=== PATIENT | female | born 1945 | race Caucasian/White ===

== ENCOUNTER 2017-08-25 09:25 | Emergency (ER) | payer MEDICARE, OTHER ==
--- NOTE | 2017-08-25 10:03 | EDM.PDOC ---
ED HPI GENERAL MEDICAL PROBLEM - General Chief Complaint: General Stated Complaint: UNSTABLE ON FEET Time Seen by Provider: 08/25/17 09:57 Source of Information: Reports: Patient, Family History Limitations: Reports: No Limitations - History of Present Illness INITIAL COMMENTS - FREE TEXT/NARRATIVE: 71 yo female BIB with c/o unsteady on feet and dizziness for at past 3- 4 days. Pt unsure if she is dizzy. When questioned, most answers per patient is "i dont know". Pt is alert and oriented but slow to respond at times. Per , pt had last chemo 2 weeks ago and has been going to the infusion clinic for IV fluids. States that when her potassium and magnesium are low, she began having the previously mentioned symptoms. States that she also has nausea. states that alertness is normal for her. Pt does state that she has some epigastric pain, states that she vomits frequently after eating and today was the first day she was able to eat without vomiting, They are to see a GI doctor next week. Onset: Gradual Duration: Intermittent Location: Reports: Abdomen Quality: Reports: Ache Severity: Mild Improves with: Reports: None Worsens with: Reports: Eating Associated Symptoms: Reports: Weakness - Related Data Allergies Allergy/AdvReac Type Severity Reaction Status Date / Time meperidine HCl [From Demerol] Allergy Anxiety Verified 08/25/17 09:35 Home Meds: Home Meds Aspirin [Ecotrin] 81 mg PO DAILY 05/24/14 [History] Calcium Carbonate [Tums] 2 tab PO ASDIRECTED PRN 05/24/14 [History] Colesevelam [Welchol] 1,875 mg PO BID 05/24/14 [History] Lutein/Minerals/Vit A,C & E [I-Chau] 2 cap PO DAILY 05/24/14 [History] Acetaminophen [Tylenol Extra Strength] 500 mg PO Q6H PRN 10/11/14 [History] Ibuprofen [Motrin] 200 mg PO Q6H PRN 10/11/14 [History] Hypromellose [GenTeal Mild to Moderate Ophth Soln] 1 drop EYEBOTH TID PRN [History] Lidocaine/Prilocaine [EMLA Crm] 1 applic TOP DAILY PRN 06/21/17 [History] Lisinopril [Prinivil] 10 mg PO DAILY 06/21/17 [History] Ondansetron HCl [Zofran] 8 mg PO Q8HR PRN 06/21/17 [History] Potassium Chloride [Klor-Con 10] 20 meq PO TID 06/21/17 [History] Prochlorperazine Maleate [Compazine] 10 mg PO Q6HR PRN 06/21/17 [History] Pyridoxine HCl [Vitamin B-6] 100 mg PO DAILY 06/21/17 [History] Terconazole [Terazol 7] 1 applic TOP DAILY PRN 06/21/17 [History] Calcium Citrate 200 mg PO DAILY 08/16/17 [History] LORazepam 0.5 mg PO BID PRN 08/16/17 [History] Latanoprost [Xalatan 0.005% Ophth Soln] 1 drop EYELF BEDTIME 08/16/17 [History] Loperamide [Imodium] 2 mg PO Q8HR PRN 08/16/17 [History] OLANZapine [ZyPREXA] 5 mg PO BID 08/16/17 [History] Pantoprazole Sodium [Protonix] 40 mg PO QAM 08/16/17 [History] Past Medical History HEENT 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: Cataract, Impaired Vision, Macular Degeneration Other HEENT History: facial fracture Cardiovascular 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: High Cholesterol, Hypertension Other Cardiovascular History: hyperlipidemia+ Respiratory 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: None Gastrointestinal 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: Diverticulosis Genitourinary 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: None [employer] 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: , Other (See Below) Other OB/BYN History: miscarriage Musculoskeletal 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: None Other Musculoskeletal History: fx clavicle Neurological 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: None Psychiatric 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: None Endocrine/Metabolic 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: Obesity/BMI 30+ Hematologic 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: None Immunologic 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: Immunosuppression Oncologic (Cancer) 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: Other (See Below) Other Oncologic History: vulvar Dermatologic 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: None - Infectious Disease History Infectious Disease 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: Chicken Pox, Measles, Mumps - Past Surgical History HEENT Surgical 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: Cataract Surgery Cardiovascular Surgical 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: None Respiratory Surgical 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: None GI Surgical 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: Cholecystectomy Female Surgical 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: Tubal Ligation Endocrine Surgical 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: None Neurological Surgical 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: None Musculoskeletal Surgical 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: Other (See Below) Other Musculoskeletal Surgeries/Procedures:: jaw surgery Oncologic Surgical 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: Other (See Below) Other Oncologic Surgeries/Procedures: 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 Dermatological Surgical 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: None Social & Family History - Family History Family Medical History: Noncontributory - Tobacco Use Smoking Status *Q: Never Smoker Month Tobacco Last Used: 12/15/1978 Second Hand Smoke Exposure: No - Caffeine Use Caffeine Use: Reports: Coffee, Soda, Tea Other Caffeine Use: RARELY - Alcohol Use Days Per Week of Alcohol Use: 0 - Recreational Drug Use Recreational Drug Use: No Drug Use in Last 12 Months: No ED ROS GENERAL - Review of Systems Review Of Systems: See Below Constitutional: Reports: Fatigue, Decreased Appetite GI/Abdominal: Reports: Abdominal Pain Neurological: Reports: Weakness, Gait Disturbance ED EXAM, GENERAL - Physical Exam Exam: See Below Exam Limited By: No Limitations General Appearance: Alert, WD/WN, No Apparent Distress Eye Exam: Bilateral Eye: Normal Inspection, PERRL Ears: Normal External Exam, Normal Canal, Hearing Grossly Normal, Normal TMs Ear Exam: Bilateral Ear: Auricle Normal, Canal Normal, TM normal Nose: Normal Inspection, Normal Mucosa, No Blood Throat/Mouth: Normal Inspection, Normal Lips, Normal Teeth, Normal Gums, Normal Oropharynx, Normal Voice, No Airway Compromise Head: Atraumatic, Normocephalic Neck: Normal Inspection, Supple, Non-Tender, Full Range of Motion Respiratory/Chest: No Respiratory Distress, Lungs Clear, Normal Breath Sounds, No Accessory Muscle Use, Chest Non-Tender Cardiovascular: Normal Peripheral Pulses, Regular Rate, Rhythm, No Edema, No Gallop, No JVD, No Murmur, No Rub Peripheral Pulses: 4+: Radial (L), Radial (R), Dorsalis Pedis (L), Dorsalis Pedis (R) GI/Abdominal: Normal Bowel Sounds, Soft, No Organomegaly, No Distention, No Abnormal Bruit, No Mass, Tender (epigastric) Extremities: Normal Inspection, Normal Range of Motion, Non-Tender, Normal Capillary Refill, No Pedal Edema Neurological: Alert, Oriented, CN II-XII Intact, Normal Reflexes, No Motor/ Sensory Deficits, Slow to Respond, Abnormal Gait (uses cane or walker) Psychiatric: Normal Affect, Normal Mood Skin Exam: Warm, Dry, Intact, Normal Color, No Rash Lymphatic: No Adenopathy Course - Vital Signs Last Recorded V/S: Last Vital Signs Temp 98.5 F 08/25/17 15:55 Pulse 78 08/25/17 15:55 Resp 20 08/25/17 15:55 BP 109/70 08/25/17 15:55 Pulse Ox 97 08/25/17 15:55 - Orders/Labs/Meds Orders: Active Orders 24 hr Category Date Time Status EKG Documentation Completion [RC] STAT Care 08/25/17 10:06 Active Heart Healthy Diet [DIET] Diet 08/25/17 Lunch Active Sodium Chloride 0.9% [Saline Flush] Med 08/25/17 10:06 Active 10 ml FLUSH ASDIRECTED PRN Saline Lock Insert [OM.PC] Stat Oth 08/25/17 10:06 Ordered Medication Orders Sodium Chloride (Saline Flush) 10 ml FLUSH ASDIRECTED PRN PRN Reason: Keep Vein Open Last Admin: 08/25/17 10:16 Dose: 10 ml Labs: Laboratory Tests 08/25/17 08/25/17 08/25/17 Range/Units 10:10 10:10 10:10 WBC 2.7 L (5.0-10.0) 10^3/uL RBC 2.56 L (4.2-5.4) 10^6/uL Hgb 8.6 L D (12.0-16.0) g/dL Hct 27.4 L (37.0-47.0) % MCV 107.0 H D (80-100) fL MCH 33.6 (27.0-34.0) pg MCHC 31.4 L (33.0-35.0) g/dL Plt Count 77 L D (150-450) 10^3/uL Neut % (Auto) 60.0 (42.2-75.2) % Lymph % (Auto) 21.5 (20.5-50.1) % [place] % (Auto) 17.7 H (2-8) % Eos % (Auto) 0.4 L (1.0-3.0) % Baso % (Auto) 0.4 (0.0-1.0) % Sodium 139 (135-145) mmol/L Potassium 2.6 L (3.6-5.0) mmol/L Chloride 103 (101-111) mmol/L Carbon Dioxide 24.0 (21.0-31.0) mmol/L Anion Gap 14.6 BUN 8 (7-18) mg/dL Creatinine 0.7 (0.6-1.3) mg/dL Est Cr Clr Drug Dosing TNP Estimated GFR (MDRD) > 60 BUN/Creatinine Ratio 11.42 Glucose 108 H (74-105) mg/dL Calcium 8.4 (8.4-10.2) mg/dl Phosphorus (2.5-4.6) mg/dL Magnesium (1.8-2.5) mg/dL Total Bilirubin 1.3 H (0.2-1.0) mg/dL AST 27 (10-42) IU/L ALT 34 (10-60) IU/L Alkaline Phosphatase 67 (42-121) IU/L Creatine Kinase 11 L (26-174) IU/L Creatine Kinase Index 21.8 H (0-2.4) % CK-MB (CK-2) 2.40 (0.4-4.7) ng/mL Troponin I 0.05 H* (0.00-0.02) ng/ml Total Protein 5.8 L (6.7-8.2) g/dl Albumin 3.0 L (3.2-5.5) g/dl Globulin 2.8 Albumin/Globulin Ratio 1.07 Urine Color (YELLOW) Urine Appearance (CLEAR) Urine pH (5.0-9.0) Ur Specific [place] (1.005-1.030) Urine Protein (NEGATIVE) Urine Glucose (UA) (NEGATIVE) Urine Ketones (NEGATIVE) Urine Occult Blood (NEGATIVE) Urine Nitrite (NEGATIVE) Urine Bilirubin (NEGATIVE) Urine Urobilinogen (0.2-1.0) mg/dL Ur Leukocyte Esterase (NEGATIVE) Urine RBC /HPF Urine WBC (0-5/HPF) /HPF Ur Epithelial Cells /HPF Urine Bacteria (0-FEW/HPF) /HPF Urine Mucus /LPF 08/25/17 08/25/17 08/25/17 Range/Units 10:10 12:10 14:40 WBC (5.0-10.0) 10^3/uL RBC (4.2-5.4) 10^6/uL Hgb (12.0-16.0) g/dL Hct (37.0-47.0) % MCV (80-100) fL MCH (27.0-34.0) pg MCHC (33.0-35.0) g/dL Plt Count (150-450) 10^3/uL Neut % (Auto) (42.2-75.2) % Lymph % (Auto) (20.5-50.1) % [place] % (Auto) (2-8) % Eos % (Auto) (1.0-3.0) % Baso % (Auto) (0.0-1.0) % Sodium 139 (135-145) mmol/L Potassium 3.5 L (3.6-5.0) mmol/L Chloride 104 (101-111) mmol/L Carbon Dioxide 24.0 (21.0-31.0) mmol/L Anion Gap 14.5 BUN 8 (7-18) mg/dL Creatinine 0.8 (0.6-1.3) mg/dL Est Cr Clr Drug Dosing TNP Estimated GFR (MDRD) > 60 BUN/Creatinine Ratio Glucose 104 (74-105) mg/dL Calcium 8.4 (8.4-10.2) mg/dl Phosphorus 2.9 (2.5-4.6) mg/dL Magnesium 1.0 L (1.8-2.5) mg/dL Total Bilirubin (0.2-1.0) mg/dL AST (10-42) IU/L ALT (10-60) IU/L Alkaline Phosphatase (42-121) IU/L Creatine Kinase (26-174) IU/L Creatine Kinase Index (0-2.4) % CK-MB (CK-2) (0.4-4.7) ng/mL Troponin I 0.05 H* (0.00-0.02) ng/ml Total Protein (6.7-8.2) g/dl Albumin (3.2-5.5) g/dl Globulin Albumin/Globulin Ratio Urine Color [place] (YELLOW) Urine Appearance Slightly cloudy (CLEAR) Urine pH 7.0 (5.0-9.0) Ur Specific [place] 1.020 (1.005-1.030) Urine Protein 30 H (NEGATIVE) Urine Glucose (UA) Negative (NEGATIVE) Urine Ketones Negative (NEGATIVE) Urine Occult Blood Negative (NEGATIVE) Urine Nitrite Negative (NEGATIVE) Urine Bilirubin Small H (NEGATIVE) Urine Urobilinogen >=8.0 H (0.2-1.0) mg/dL Ur Leukocyte Esterase Moderate H (NEGATIVE) Urine RBC 0-5 /HPF Urine WBC >100 H (0-5/HPF) /HPF Ur Epithelial Cells Few /HPF Urine Bacteria Moderate H (0-FEW/HPF) /HPF Urine Mucus Rare /LPF 08/25/17 Range/Units 14:40 WBC (5.0-10.0) 10^3/uL RBC (4.2-5.4) 10^6/uL Hgb (12.0-16.0) g/dL Hct (37.0-47.0) % MCV (80-100) fL MCH (27.0-34.0) pg MCHC (33.0-35.0) g/dL Plt Count (150-450) 10^3/uL Neut % (Auto) (42.2-75.2) % Lymph % (Auto) (20.5-50.1) % [place] % (Auto) (2-8) % Eos % (Auto) (1.0-3.0) % Baso % (Auto) (0.0-1.0) % Sodium (135-145) mmol/L Potassium (3.6-5.0) mmol/L Chloride (101-111) mmol/L Carbon Dioxide (21.0-31.0) mmol/L Anion Gap BUN (7-18) mg/dL Creatinine (0.6-1.3) mg/dL Est Cr Clr Drug Dosing Estimated GFR (MDRD) BUN/Creatinine Ratio Glucose (74-105) mg/dL Calcium (8.4-10.2) mg/dl Phosphorus (2.5-4.6) mg/dL Magnesium 1.6 L (1.8-2.5) mg/dL Total Bilirubin (0.2-1.0) mg/dL AST (10-42) IU/L ALT (10-60) IU/L Alkaline Phosphatase (42-121) IU/L Creatine Kinase (26-174) IU/L Creatine Kinase Index (0-2.4) % CK-MB (CK-2) (0.4-4.7) ng/mL Troponin I (0.00-0.02) ng/ml Total Protein (6.7-8.2) g/dl Albumin (3.2-5.5) g/dl Globulin Albumin/Globulin Ratio Urine Color (YELLOW) Urine Appearance (CLEAR) Urine pH (5.0-9.0) Ur Specific [place] (1.005-1.030) Urine Protein (NEGATIVE) Urine Glucose (UA) (NEGATIVE) Urine Ketones (NEGATIVE) Urine Occult Blood (NEGATIVE) Urine Nitrite (NEGATIVE) Urine Bilirubin (NEGATIVE) Urine Urobilinogen (0.2-1.0) mg/dL Ur Leukocyte Esterase (NEGATIVE) Urine RBC /HPF Urine WBC (0-5/HPF) /HPF Ur Epithelial Cells /HPF Urine Bacteria (0-FEW/HPF) /HPF Urine Mucus /LPF Meds: Medications Generic Name Dose Route Start Last Admin Trade Name Freq PRN Reason Stop Dose Admin Sodium Chloride 10 ml 08/25/17 10:06 08/25/17 10:16 Saline Flush FLUSH 10 ml ASDIRECTED PRN Administration Keep Vein Open Discontinued Medications Generic Name Dose Route Start Last Admin Trade Name Freq PRN Reason Stop Dose Admin Ciprofloxacin 500 mg 08/25/17 16:19 Ciprofloxacin Hcl PO 08/25/17 16:20 ONETIME ONE Potassium Chloride 20 meq/ 100 mls @ 50 mls/hr 08/25/17 11:05 08/25/17 11:20 Premix IV 08/25/17 13:04 50 mls/hr ONETIME ONE Administration Sodium Chloride 500 mls @ 500 mls/hr 08/25/17 11:17 08/25/17 11:18 Normal Saline IV 08/25/17 12:16 500 mls/hr .BOLUS ONE Administration Magnesium Sulfate 2 gm/ Premix 50 mls @ 25 mls/hr 08/25/17 11:18 08/25/17 13: 52 IV 08/25/17 13:17 25 mls/hr ONETIME ONE Administration Nitrofurantoin Macrocrystals 100 mg 08/25/17 16:01 Macrobid PO 08/25/17 16:02 ONETIME ONE - Re-Assessments/Exams Free Text/Narrative Re-Assessment/Exam: 08/25/17 11:42 Informed and patient that cardiac enzymes were elevated and electrolytes were low and need replacement. Will send patient to extended Er for replacement and repeat troponin. Both verbalizes understanding 08/25/17 16:35 Labs improved after lytes replacement. troponin stable. Pt more alert and oriented. UTI treated. Will DC home Departure - Departure Time of Disposition: 16:36 Disposition: Home, Self-Care 01 Condition: Good Clinical Impression: Hypokalemia, Hypomagnesemia, UTI, Urinary tract infectious disease Neutropenia Qualifiers: Neutropenia type: secondary to cancer chemotherapy Qualified Code(s): D70.1 - Agranulocytosis secondary to cancer chemotherapy; T45.1X5A - Adverse effect of antineoplastic and immunosuppressive drugs, initial encounter - Discharge Information Instructions: Hypomagnesemia, Premature Ventricular Contraction, Hypokalemia, Urinary Tract Infection, Adult, Neutropenia Forms: ED Department Discharge Additional Instructions: MAke sure to stay well hydrated. Follow up with your PCP in 3-5 days. Return for any worsening symptoms. - My Orders Last 24 Hours: My Active Orders 08/25/17 10:06 EKG Documentation Completion [RC] STAT Sodium Chloride 0.9% [Saline Flush] 10 ml FLUSH ASDIRECTED PRN Saline Lock Insert [OM.PC] Stat 08/25/17 Lunch Heart Healthy Diet [DIET] - Assessment/Plan Last 24 Hours: My Active Orders 08/25/17 10:06 EKG Documentation Completion [RC] STAT Sodium Chloride 0.9% [Saline Flush] 10 ml FLUSH ASDIRECTED PRN Saline Lock Insert [OM.PC] Stat 08/25/17 Lunch Heart Healthy Diet [DIET]
[2017-08-25] MEDS ORDERED: Sodium Chloride 0.9% 10 ML Syringe FLUSH PRN (10:06)
[2017-08-25 10:42] LABS: CHLORIDE,CL 103 mmol/L (101-111); SODIUM,NA 139 mmol/L (135-145)
--- NOTE | 2017-08-25 10:57 | CR ---
Clinical history: 71-year-old female experiencing "dizziness". Interpretation: Right supraclavicular central venous chemoinfusion line. Normal cardiac silhouette without alveolar edema or dependent effusion (subtle blunting of the left costophrenic sulcus as noted on 11 October 2014 exam). No new lung mass, hilar lymphadenopathy or focal lobar pneumonia. No atelectasis/collapse or signs of heart failure. CONCLUSION: No acute cardiopulmonary abnormality.
[2017-08-25] MEDS ORDERED: Potassium Chloride 20 MEQ in Premix Bag 1 BAG IV ONE (11:05)
[2017-08-25] MEDS ORDERED: Sodium Chloride 0.9% 500 ML IV ONE (11:17)
[2017-08-25] MEDS ORDERED: Magnesium Sulfate/Water 2 GM in Premix Bag 1 BAG IV ONE (11:18)
[2017-08-25 15:10] LABS: CHLORIDE,CL 104 mmol/L (101-111); SODIUM,NA 139 mmol/L (135-145)
[2017-08-25 15:55] VITALS: BP 109/70
[2017-08-25] MEDS ORDERED: Nitrofurantoin Monohydrate/Macrocrystalline 100 MG Cap PO ONE (16:01)
[2017-08-25] MEDS ORDERED: Ciprofloxacin 500 MG Tab PO ONE (16:19)
--- NOTE | 2017-08-29 11:09 | EKG ---
08/25/2017 - MIRLANDE ROBLEDO - This 12-lead EKG showed a normal sinus rhythm with a ventricular rate of 97. There were multiple PVCs. No acute ST-T wave changes. Nonspecific T-wave changes seen in multiple leads. [facility] /[id number]
== END 2017-08-25 17:13 | disposition home or self-care (01) ==
LOC: DL.ED 09:25
DX: N39.0 Urinary tract infection, site not specified (principal); D70.1 Agranulocytosis secondary to cancer chemotherapy; E87.6 Hypokalemia; E83.42 Hypomagnesemia; I10 Essential (primary) hypertension; E66.9 Obesity, unspecified; Z88.8 Allergy status to other drugs, medicaments and biological substances; Z79.82 Long term (current) use of aspirin; Z79.899 Other long term (current) drug therapy
CPT/HCPCS: 36415; 71010; 80048; 80053; 81001; 82550; 82553; 83735; 84100; 84484; 85025; 93005; 93010; 96365; 96366; 96367; 99284; A9270; J3480; J7030; J7050; J3475

== ENCOUNTER 2017-09-01 12:25 | Observation (INO) | payer MEDICARE, OTHER ==
--- NOTE | 2017-09-01 15:16 | EDM.PDOC ---
ED HPI GENERAL MEDICAL PROBLEM - General Chief Complaint: General Stated Complaint: UNSTEADY,WEAK Time Seen by Provider: 09/01/17 14:15 Source of Information: Reports: Patient, Family, Old Records, RN, RN Notes Reviewed History Limitations: Reports: Altered Mental Status - History of Present Illness INITIAL COMMENTS - FREE TEXT/NARRATIVE: Patient was brought to the ER by her . states she was to be seen at [facility] for magnesium and potassium infusions. He was contacted by [facility] and told that she was too unstable according to her labs to be brought to the infusion center, and that she should be evaluated in the ER. states she has been increasingly confused and weak. He states she does have lung cancer, but last Chest CT showed the cancer had diminished. She was having a difficult time with the chemo, so this was stopped 2 weeks ago. He states she was seen on 08/25 in the ER and was diagnosed with a UTI and was given Cipro. He attributed the increased confusion and weakness to the UTI. She did see her PCP last week and told her that the patient did not appear to be any better. The medication was changed to Augmentin. Today, the patient's was contacted and told that the urine culture did not grow anything. SHe last had her Augmentin this morning, but he states it makes her very nauseated. He also states they have been doctoring with ENT and GI for a gagging issue in which she is not tolerating food, gags, and vomits quite frequently. Onset: Gradual - Related Data Allergies Allergy/AdvReac Type Severity Reaction Status Date / Time meperidine HCl [From Demerol] Allergy Anxiety Verified 09/01/17 18:22 Home Meds: Home Meds Aspirin [Ecotrin] 81 mg PO DAILY 05/24/14 [History] Calcium Carbonate [Tums] 2 tab PO ASDIRECTED PRN 05/24/14 [History] Colesevelam [Welchol] 1,875 mg PO BID 05/24/14 [History] Lutein/Minerals/Vit A,C & E [I-Chau] 2 cap PO DAILY 05/24/14 [History] Acetaminophen [Tylenol Extra Strength] 500 mg PO Q6H PRN 10/11/14 [History] Ibuprofen [Motrin] 200 mg PO Q6H PRN 10/11/14 [History] Hypromellose [GenTeal Mild to Moderate Ophth Soln] 1 drop EYEBOTH TID PRN [History] Lidocaine/Prilocaine [EMLA Crm] 1 applic TOP DAILY PRN 06/21/17 [History] Ondansetron HCl [Zofran] 8 mg PO Q8HR PRN 06/21/17 [History] Potassium Chloride [Klor-Con 10] 20 meq PO TID 06/21/17 [History] Prochlorperazine Maleate [Compazine] 10 mg PO Q6HR PRN 06/21/17 [History] Pyridoxine HCl [Vitamin B-6] 100 mg PO DAILY 06/21/17 [History] Terconazole [Terazol 7] 1 applic TOP DAILY PRN 06/21/17 [History] Calcium Citrate 200 mg PO DAILY 08/16/17 [History] Latanoprost [Xalatan 0.005% Ophth Soln] 1 drop EYELF BEDTIME 08/16/17 [History] Loperamide [Imodium] 2 mg PO Q8HR PRN 08/16/17 [History] Past Medical History HEENT 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: Cataract, Impaired Vision, Macular Degeneration Other HEENT History: facial fracture Cardiovascular 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: High Cholesterol, Hypertension Other Cardiovascular History: hyperlipidemia+ Respiratory 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: None Gastrointestinal 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: Diverticulosis Genitourinary 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: None 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: , Other (See Below) Other OB/BYN History: miscarriage Musculoskeletal 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: None Other Musculoskeletal History: fx clavicle Neurological 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: None Psychiatric 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: None Endocrine/Metabolic 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: Obesity/BMI 30+ Hematologic 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: None Immunologic 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: Immunosuppression Oncologic (Cancer) 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: Other (See Below) Other Oncologic History: vulvar Dermatologic 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: None - Infectious Disease History Infectious Disease 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: Chicken Pox, Measles, Mumps - Past Surgical History HEENT Surgical 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: Cataract Surgery Cardiovascular Surgical 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: None Respiratory Surgical 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: None GI Surgical 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: Cholecystectomy Female Surgical 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: Tubal Ligation Endocrine Surgical 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: None Neurological Surgical 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: None Musculoskeletal Surgical 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: Other (See Below) Other Musculoskeletal Surgeries/Procedures:: jaw surgery Oncologic Surgical 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: Other (See Below) Other Oncologic Surgeries/Procedures: 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 Dermatological Surgical 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: None Social & Family History - Family History Family Medical History: Noncontributory - Tobacco Use Smoking Status *Q: Never Smoker Month Tobacco Last Used: 12/15/1978 Second Hand Smoke Exposure: No - Caffeine Use Caffeine Use: Reports: Coffee, Soda, Tea Other Caffeine Use: RARELY - Alcohol Use Days Per Week of Alcohol Use: 0 - Recreational Drug Use Recreational Drug Use: No Drug Use in Last 12 Months: No ED ROS GENERAL - Review of Systems Review Of Systems: ROS reveals no pertinent complaints other than HPI. ED EXAM, GENERAL - Physical Exam Exam: See Below Exam Limited By: Altered Mental Status General Appearance: Alert, WD/WN, No Apparent Distress Eye Exam: Bilateral Eye: Normal Inspection Ears: Normal External Exam, Hearing Grossly Normal Nose: Normal Inspection Throat/Mouth: Normal Inspection, Normal Lips, Normal Teeth, Normal Gums, No Airway Compromise. No: Normal Voice (raspy at times) Head: Atraumatic, Normocephalic Neck: Normal Inspection Respiratory/Chest: No Respiratory Distress, Lungs Clear, Normal Breath Sounds, No Accessory Muscle Use, Chest Non-Tender Cardiovascular: Normal Peripheral Pulses, Regular Rate, Rhythm, No Gallop, No JVD, No Murmur, No Rub, Other (left leg lymphedema). No: No Edema Peripheral Pulses: 1+: Dorsalis Pedis (L), Dorsalis Pedis (R), 2+: Radial (L), Radial (R) GI/Abdominal: Normal Bowel Sounds, Soft, Non-Tender (Female) Exam: Deferred Rectal (Female) Exam: Deferred Back Exam: Normal Inspection, Full Range of Motion Neurological: Alert, Oriented, Normal Cognition, Normal Gait, No Motor/Sensory Deficits Psychiatric: Normal Affect, Normal Mood Skin Exam: Warm, Dry, Intact, Normal Color, No Rash Lymphatic: No Adenopathy EKG INTERPRETATION EKG Date: 09/01/17 Time: 15:00 Rhythm: NSR [place]: Normal P-Wave: Present QRS: Normal ST-T: Normal QT: Normal Comparison: NA - No Prior EKG Course - Vital Signs Last Recorded V/S: Last Vital Signs Temp 97.5 F 09/02/17 07:34 Pulse 86 09/02/17 07:34 Resp 20 09/02/17 07:34 BP 118/78 09/02/17 07:34 Pulse Ox 95 09/02/17 07:34 - Orders/Labs/Meds Orders: Medication Orders Acetaminophen (Tylenol) 650 mg PO Q4H PRN PRN Reason: Pain (Mild 1-3)/fever Amoxicillin/Clavulanate Potassium (Augmentin 500 Mg\125 Mg) 1 tab PO Q8HR [facility] Last Admin: 09/02/17 06:15 Dose: 1 tab Admin: 09/01/17 21:51 Dose: 1 tab Admin: 09/01/17 18:58 Dose: 1 tab Aspirin (Halfprin) 81 mg PO DAILY [facility] Last Admin: 09/02/17 08:51 Dose: 81 mg Latanoprost (Xalatan 0.005% Ophth Soln) 0 ml EYELF BEDTIME [facility] Last Admin: 09/01/17 21:58 Dose: 1 drop Magnesium Oxide (Magnesium Oxide) 250 mg PO BIDM [facility] Last Admin: 09/02/17 08:51 Dose: 250 mg Admin: 09/01/17 18:58 Dose: 250 mg Non-Formulary Medication (Hypromellose [Genteal Mild To Moderate Ophth Soln]) 1 drop EYEBOTH TID PRN PRN Reason: Dry Eyes Ondansetron HCl (Zofran Odt) 8 mg PO Q8H PRN PRN Reason: NAUSEA/VOMITING Last Admin: 09/02/17 08:50 Dose: 8 mg Admin: 09/02/17 00:21 Dose: 8 mg Potassium Chloride (Klor-Con 10) 20 meq PO TID [facility] Last Admin: 09/02/17 08:51 Dose: 20 meq Admin: 09/01/17 21:51 Dose: 20 meq Pyridoxine HCl (Vitamin B6-Pyridoxine) 100 mg PO DAILY [facility] Last Admin: 09/02/17 08:51 Dose: 100 mg Sodium Chloride (Saline Flush) 10 ml FLUSH ASDIRECTED PRN PRN Reason: Keep Vein Open Zolpidem Tartrate (Ambien) 5 mg PO BEDTIME PRN PRN Reason: Sleep Labs: Laboratory Tests 09/01/17 09/01/17 09/01/17 Range/Units 14:44 14:44 14:44 WBC 3.8 L (5.0-10.0) 10^3/uL RBC 3.01 L (4.2-5.4) 10^6/uL Hgb 10.2 L D (12.0-16.0) g/dL Hct 32.0 L (37.0-47.0) % MCV 106.3 H (80-100) fL MCH 33.9 (27.0-34.0) pg MCHC 31.9 L (33.0-35.0) g/dL Plt Count 50 L (150-450) 10^3/uL Neut % (Auto) 66.9 (42.2-75.2) % Lymph % (Auto) 23.0 (20.5-50.1) % [place]les % (Auto) 9.5 H (2-8) % Eos % (Auto) 0.3 L (1.0-3.0) % Baso % (Auto) 0.3 (0.0-1.0) % D-Dimer, Quantitative 1820 H (0-400) ng/mL Ammonia (11-35) umol/L Amylase 29 (28-100) U/L Lipase 35 (22-51) U/L 09/01/17 Range/Units 14:44 WBC (5.0-10.0) 10^3/uL RBC (4.2-5.4) 10^6/uL Hgb (12.0-16.0) g/dL Hct (37.0-47.0) % MCV (80-100) fL MCH (27.0-34.0) pg MCHC (33.0-35.0) g/dL Plt Count (150-450) 10^3/uL Neut % (Auto) (42.2-75.2) % Lymph % (Auto) (20.5-50.1) % Nobles % (Auto) (2-8) % Eos % (Auto) (1.0-3.0) % Baso % (Auto) (0.0-1.0) % D-Dimer, Quantitative (0-400) ng/mL Ammonia 14 (11-35) umol/L Amylase (28-100) U/L Lipase (22-51) U/L Meds: Medications Generic Name Dose Route Start Last Admin Trade Name Freq PRN Reason Stop Dose Admin Acetaminophen 650 mg 09/01/17 17:54 Tylenol PO Q4H PRN Pain (Mild 1-3)/fever Amoxicillin/Clavulanate Potassium 1 tab 09/01/17 18:00 09/02/17 06:15 Augmentin 500 Mg\125 Mg PO 1 tab Q8HR YEVGENIY Administration Aspirin 81 mg 09/02/17 09:00 09/02/17 08:51 Halfprin PO 81 mg DAILY YEVGENIY Administration Latanoprost 0 ml 09/01/17 21:00 09/01/17 21:58 Xalatan 0.005% Ophth Soln EYELF 1 drop BEDTIME YEVGENIY Administration Magnesium Oxide 250 mg 09/01/17 18:00 09/02/17 08:51 Magnesium Oxide PO 250 mg BIDM YEVGENIY Administration Non-Formulary Medication 1 drop 09/01/17 17:45 Hypromellose [Genteal Mild To Moderate Ophth Soln] EYEBOTH TID PRN Dry Eyes Ondansetron HCl 8 mg 09/01/17 18:00 09/02/17 08:50 Zofran Odt PO 8 mg Q8H PRN Administration NAUSEA/VOMITING Potassium Chloride 20 meq 09/01/17 21:00 09/02/17 08:51 Klor-Con 10 PO 20 meq TID YEVGENIY Administration Pyridoxine HCl 100 mg 09/02/17 09:00 09/02/17 08:51 Vitamin B6-Pyridoxine PO 100 mg DAILY YEVGENIY Administration Sodium Chloride 10 ml 09/01/17 17:54 Saline Flush FLUSH ASDIRECTED PRN Keep Vein Open Zolpidem Tartrate 5 mg 09/01/17 17:54 Ambien PO BEDTIME PRN Sleep Discontinued Medications Generic Name Dose Route Start Last Admin Trade Name Freq PRN Reason Stop Dose Admin Magnesium Sulfate 2 gm/ Premix 50 mls @ 25 mls/hr 09/01/17 16:20 09/01/17 16: 54 IV 09/01/17 18:19 25 mls/hr ONETIME ONE Administration Potassium Chloride 20 meq/ 100 mls @ 50 mls/hr 09/01/17 16:21 09/01/17 16:44 Premix IV 09/01/17 18:20 50 mls/hr ONETIME ONE Administration Sodium Chloride 1,000 mls @ 150 mls/hr 09/01/17 16:22 09/01/17 16:32 Normal Saline IV 09/01/17 23:01 150 mls/hr .BOLUS ONE Administration Magnesium Sulfate 2 gm/ Premix 50 mls @ 25 mls/hr 09/01/17 17:20 09/01/17 17: 53 IV 09/01/17 19:19 Not Given ONETIME ONE Magnesium Sulfate 2 gm/ Premix 50 mls @ 25 mls/hr 09/01/17 23:00 09/01/17 22: 35 IV 09/02/17 00:59 25 mls/hr ONETIME ONE Administration Potassium Chloride 10 meq/ 100 mls @ 100 mls/hr 09/01/17 18:00 09/02/17 04:02 Premix IV 09/02/17 04:59 100 mls/hr Q2HR YEVGENIY Administration Iopamidol 50 ml 09/01/17 15:41 09/01/17 15:48 Isovue-300 (61%) IVPUSH 09/01/17 15:42 50 ml ONETIME ONE Administration Ondansetron HCl 4 mg 09/01/17 16:23 09/01/17 16:32 Zofran IV 09/01/17 16:24 4 mg ONETIME ONE Administration Departure - Departure Time of Disposition: 16:51 Disposition: Admitted As Inpatient 65 Condition: Fair Clinical Impression: Hypomagnesemia, Hypokalemia - Discharge Information
[2017-09-01] MEDS ORDERED: Iopamidol 612 MG/ML 50 ML SDV IVPUSH ONE (15:41)
--- NOTE | 2017-09-01 16:09 | CT ---
Clinical history: 72-year-old confused female (history lung malignancy). Metastasis? Scan technique: Volume acquisition of data emergency unenhanced CT scan of the head and brain obtaine d with patient lying supine on the Siemens multi slice scanner [facility]. All data archived in the PACS system for storage, reformatting and study. Interpretation: 1. Uniformly thick bony calvarium without sign of pathologic skeletal lesion or skull fracture. Clear pneumatization sinuses. 2. Mild atrophy pattern symmetric with underlying mirror-image normal ventricular system. No hydrocep halus. 3. Several new focal areas of decreased brain attenuation periventricular white matter particularly r ight cerebral hemisphere. No ischemic infarcts? Metastatic disease? (CT scan with IV contrast recomme nded) 4. No mass effect and no sign of acute intracerebral/intraventricular/subarachnoid bleed. Physiologic midline falcine, pineal and symmetric choroid plexus calcifications. 5. No supratentorial or posterior fossa mass effect. Cerebellum and brainstem unremarkable. CONCLUSION: New abnormalities periventricular white matter, bilaterally. Recommend contrast-enhanced exam.
[2017-09-01] MEDS ORDERED: Magnesium Sulfate/Water 2 GM in Premix Bag 1 BAG IV ONE ×3 (16:20→23:00)
[2017-09-01] MEDS ORDERED: Potassium Chloride 20 MEQ in Premix Bag 1 BAG IV ONE (16:21)
[2017-09-01] MEDS ORDERED: Sodium Chloride 0.9% 1,000 ML IV ONE (16:22)
[2017-09-01] MEDS ORDERED: Ondansetron 4 MG/2 ML SDV IV ONE (16:23)
[2017-09-01] MEDS ORDERED: Polyvinyl Alcohol 1.4% Ophth Soln 15 ML Bottle EYEBOTH PRN (17:45)
--- NOTE | 2017-09-01 17:53 | PCM.HP ---
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 The patient has been on chemotherapy. She was diagnosed with urinary tract infection a few days ago. Has been on Augmentin at home. The patient has a history of hypokalemia and hypomagnesemia. Today on checking the electrolytes the patient was noted to have severe hypokalemia. Was recommended to come to the emergency room. The patient has a history of left lower extremity lymphedema. She has a history of confusion. According to the these are unchanged today. The patient denied shortness of breath, no chest pain, no calf pain. The patient is not oriented to recent events so the history is limited. - Related Data Allergies/Adverse Reactions: Allergies Allergy/AdvReac Type Severity Reaction Status Date / Time meperidine HCl [From Demerol] Allergy Anxiety Verified 08/25/17 09:35 Home Medications: Home Meds Aspirin [Ecotrin] 81 mg PO DAILY 05/24/14 [History] Calcium Carbonate [Tums] 2 tab PO ASDIRECTED PRN 05/24/14 [History] Colesevelam [Welchol] 1,875 mg PO BID 05/24/14 [History] Lutein/Minerals/Vit A,C & E [I-Chau] 2 cap PO DAILY 05/24/14 [History] Acetaminophen [Tylenol Extra Strength] 500 mg PO Q6H PRN 10/11/14 [History] Ibuprofen [Motrin] 200 mg PO Q6H PRN 10/11/14 [History] Hypromellose [GenTeal Mild to Moderate Ophth Soln] 1 drop EYEBOTH TID PRN [History] Lidocaine/Prilocaine [EMLA Crm] 1 applic TOP DAILY PRN 06/21/17 [History] Ondansetron HCl [Zofran] 8 mg PO Q8HR PRN 06/21/17 [History] Potassium Chloride [Klor-Con 10] 20 meq PO TID 06/21/17 [History] Prochlorperazine Maleate [Compazine] 10 mg PO Q6HR PRN 06/21/17 [History] Pyridoxine HCl [Vitamin B-6] 100 mg PO DAILY 06/21/17 [History] Terconazole [Terazol 7] 1 applic TOP DAILY PRN 06/21/17 [History] Calcium Citrate 200 mg PO DAILY 08/16/17 [History] Latanoprost [Xalatan 0.005% Ophth Soln] 1 drop EYELF BEDTIME 08/16/17 [History] Loperamide [Imodium] 2 mg PO Q8HR PRN 08/16/17 [History] Past Medical History HEENT 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: Cataract, Impaired Vision, Macular Degeneration Other HEENT History: facial fracture Cardiovascular 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: High Cholesterol, Hypertension Other Cardiovascular History: hyperlipidemia+ Respiratory 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: None Gastrointestinal 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: Diverticulosis Genitourinary 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: None 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: , 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 (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 Below) Other OB/BYN History: miscarriage Musculoskeletal 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: None Other Musculoskeletal History: fx clavicle Neurological 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: None Psychiatric 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: None Endocrine/Metabolic 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: Obesity/BMI 30+ Hematologic 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: None Immunologic 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: Immunosuppression Oncologic (Cancer) 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: Other (See Below) Other Oncologic History: vulvar Dermatologic 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: None - Infectious Disease History Infectious Disease 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: Chicken Pox, Measles, Mumps - Past Surgical History HEENT Surgical 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: Cataract Surgery Cardiovascular Surgical 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: None Respiratory Surgical 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: None GI Surgical 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: Cholecystectomy Female Surgical 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: Tubal Ligation Endocrine Surgical 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: None Neurological Surgical 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: None Musculoskeletal Surgical 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: Other (See Below) Other Musculoskeletal Surgeries/Procedures:: jaw surgery Oncologic Surgical 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: Other (See Below) Other Oncologic Surgeries/Procedures: 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 Dermatological Surgical 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: None Social & Family History - Family History Family Medical History: Noncontributory - Tobacco Use Smoking Status *Q: Never Smoker Month Tobacco Last Used: 12/15/1978 Second Hand Smoke Exposure: No - Caffeine Use Caffeine Use: Reports: Coffee, Soda, Tea Other Caffeine Use: RARELY - Alcohol Use Days Per Week of Alcohol Use: 0 - Recreational Drug Use Recreational Drug Use: No Drug Use in Last 12 Months: No H&P Review of Systems - Review of Systems: Review Of Systems: See Below General: Denies: Fever Pulmonary: Denies: Shortness of Breath Cardiovascular: Denies: Chest Pain Gastrointestinal: Denies: Abdominal Pain Psychiatric: Reports: Confusion (Chronic) Exam - Exam Exam: See Below - Vital Signs Vital Signs: Last Vital Signs Temp 36.1 C 09/01/17 13:14 Pulse 98 09/01/17 14:25 Resp 16 09/01/17 14:25 BP 135/83 09/01/17 14:25 Pulse Ox 94 L 09/01/17 14:25 Weight: 77.111 kg - Exam General: Alert. No: Oriented Neck: Supple Lungs: Clear to Auscultation, Normal Respiratory Effort Cardiovascular: Regular Rate, Regular Rhythm GI/Abdominal Exam: Normal Bowel Sounds, Soft, Non-Tender Extremities: Pedal Edema (2+ edema on the left side, 1+ edema on the right side) Skin: Warm, Dry Neuro Extensive - Mental Status: Alert. No: Oriented x3 Psychiatric: Alert, Normal Mood - Patient Data Lab Results Last 24 hrs: Laboratory studies from [employer] were reviewed. Magnesium was 1.0, potassium 2.4. EKG from the emergency room per my reading shows normal sinus rhythm. Result Diagrams: 09/01/17 14:44 *Q Meaningful Use (ADM) - VTE *Q VTE Criteria *Q: - Stroke *Q Stroke Criteria *Q: - AMI *Q AMI Criteria *Q: - Problem List (1) Hypokalemia SNOMED Code(s): 46791646 ICD Code: E87.6 - HYPOKALEMIA Status: Acute Current Visit: Yes (2) Hypomagnesemia SNOMED Code(s): 797168154 ICD Code: E83.42 - HYPOMAGNESEMIA Status: Acute Current Visit: Yes Problem List Initiated/Reviewed/Updated: Yes Orders Last 24hrs: Active Orders 24 hr Category Date Time Status Telemetry Monitoring [Cardiac Monitoring] [RC] . Care 09/01/17 17:15 Active DIRECTED General [Regular Diet] [DIET] Diet 09/02/17 Breakfast Active Venous Doppler Lwr Ext Lt [US] Routine Exams 09/01/17 17:17 Ordered Aspirin [Halfprin] Med 09/02/17 09:00 Ordered 81 mg PO DAILY Hypromellose [GenTeal Mild to Moderate Ophth Soln] Med 09/01/17 17:45 Ordered 1 drop EYEBOTH TID PRN Latanoprost [Xalatan 0.005% Ophth Soln] Med 09/01/17 21:00 Ordered 1 drop EYELF BEDTIME Magnesium Oxide Med 09/01/17 18:00 Ordered 250 mg PO BIDM Magnesium Sulfate/Water [Magnesium Sulfate 2 GM in Med 09/01/17 23:00 Ordered Water 50 ML] 2 gm Premix Bag 1 bag IV ONETIME Ondansetron HCl Med 09/01/17 17:45 Ordered 8 mg PO Q8HR PRN Potassium Chloride [KCl 10 MEQ in Water 100 ML] 10 meq Med 09/01/17 18:00 Ordered Premix Bag 1 bag IV Q2HR Potassium Chloride [Klor-Con 10] Med 09/01/17 21:00 Ordered 20 meq PO TID Vitamin B6-pyridOXINE Med 09/02/17 09:00 Ordered 100 mg PO DAILY Medication Orders Aspirin (Halfprin) 81 mg PO DAILY YEVGENIY Magnesium Sulfate 2 gm/ Premix 50 mls @ 25 mls/hr IV ONETIME ONE Stop: 09/01/17 18:19 Last Admin: 09/01/17 16:54 Dose: 25 mls/hr Potassium Chloride 20 meq/ (Premix) 100 mls @ 50 mls/hr IV ONETIME ONE Stop: 09/01/17 18:20 Last Admin: 09/01/17 16:44 Dose: 50 mls/hr Sodium Chloride (Normal Saline) 1,000 mls @ 150 mls/hr IV .BOLUS ONE Stop: 09/01/17 23:01 Last Admin: 09/01/17 16:32 Dose: 150 mls/hr Magnesium Sulfate 2 gm/ Premix 50 mls @ 25 mls/hr IV ONETIME ONE Stop: 09/02/17 00:59 Potassium Chloride 10 meq/ (Premix) 100 mls @ 100 mls/hr IV Q2HR YEVGENIY Stop: 09/02/17 04:59 Latanoprost (Xalatan 0.005% Ophth Soln) ml EYELF BEDTIME YEVGENIY Magnesium Oxide (Magnesium Oxide) 250 mg PO BIDM YEVGENIY Non-Formulary Medication (Hypromellose [Genteal Mild To Moderate Ophth Soln]) 1 drop EYEBOTH TID PRN PRN Reason: Dry Eyes Non-Formulary Medication (Ondansetron Hcl) 8 mg PO Q8HR PRN PRN Reason: Nausea/Vomiting Potassium Chloride (Klor-Con 10) 20 meq PO TID YEVGENIY Pyridoxine HCl (Vitamin B6-Pyridoxine) [address] [facility] Assessment/Plan Comment:: 72-year-old lady with a history of hypokalemia presented with severe hypokalemia and hypomagnesemia. The patient had some nausea but no significant vomiting, no diarrhea to explain the low electrolyte levels. For now I will replace with IV potassium and IV magnesium. We will also continue oral supplement for potassium from tomorrow. Start oral magnesium supplement. We'll monitor her electrolyte panel. Chronic confusion According to the this is stable The patient is at high risk for hospital related acute delirium Will do frequent reorientation. Bilateral lower extremity edema, left more pronounced than right. According to the this is normal for the patient. Given the elevated d-dimer level Will obtain an ultrasound of the left lower extremity. For now I will hold the diuretics on the electrolytes are stabilizing. Thrombocytopenia. This is likely due to chemotherapy. We'll monitor Hold Lovenox and heparin The patient has been on aspirin and I will continue that unless more pronounced from thrombocytopenia is developing.
[2017-09-01] MEDS ORDERED: Acetaminophen 325 MG Tab PO PRN (17:54)
[2017-09-01] MEDS ORDERED: Sodium Chloride 0.9% 10 ML Syringe FLUSH PRN (17:54)
[2017-09-01] MEDS ORDERED: Zolpidem 5 MG Tab PO PRN (17:54)
[2017-09-01] MEDS: Amoxicillin/Clavulanate K 500-125 MG Tab PO SCH ×2 (18:58→21:51)
[2017-09-01] MEDS: Potassium Chloride 10 MEQ in Premix Bag 1 BAG IV SCH ×3 (19:25→21:32)
[2017-09-01] MEDS ORDERED: Latanoprost 0.005% Ophth Soln 2.5 ML Bottle EYELF SCH (21:00)
[2017-09-01] MEDS: Potassium Chloride 10 MEQ Tab.ER PO SCH (21:51)
[2017-09-02] MEDS: Ondansetron 4 MG Tab.DIS PO PRN ×2 (00:21→08:50)
[2017-09-02] MEDS: Potassium Chloride 10 MEQ in Premix Bag 1 BAG IV SCH ×3 (00:24→04:02)
[2017-09-02] MEDS: Amoxicillin/Clavulanate K 500-125 MG Tab PO SCH (06:15)
[2017-09-02 07:04] LABS: CHLORIDE,CL 103 mmol/L (101-111); SODIUM,NA 138 mmol/L (135-145)
[2017-09-02] MEDS: Potassium Chloride 10 MEQ Tab.ER PO SCH (08:51)
[2017-09-02] MEDS ORDERED: Aspirin 81 MG Tab.EC PO SCH (09:00)
[2017-09-02] MEDS ORDERED: Vitamin B6-pyridOXINE 100 MG Tab PO SCH (09:00)
--- NOTE | 2017-09-02 10:10 | US ---
CLINICAL HISTORY: 72-year-old hospitalized patient (confusion) with a history of "lung cancer" and no w lower extremity lymphedema on the left. Rule out DVT. INTERPRETATION: Negative exam. No sign of intraluminal echogenic thrombus and normal compressibility deep veins of the left groin, t high and knee with satisfactory augmentation demonstrated in the left popliteal vein proximally in th e common femoral veins left lower leg. No Shea's cyst. CONCLUSION: No current sonographic evidence clinically significant DVT left lower extremity.
--- NOTE | 2017-09-02 10:37 | PCM.DCSUM1 ---
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 The patient has been on chemotherapy. She was diagnosed with urinary tract infection a few days ago. Has been on Augmentin at home. The patient has a history of hypokalemia and hypomagnesemia on chronic potassium supplement. Today on checking the electrolytes the patient was noted to have severe hypokalemia. Was recommended to come to the emergency room. The patient has a history of left lower extremity lymphedema. She has a history of confusion. According to the these were unchanged on admission. Severe hypokalemia and hypomagnesemia This resolved with IV potassium and IV magnesium. We will also continue oral supplement for potassium. Start oral magnesium supplement. 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 According to the this is normal for the patient. Will obtain an ultrasound of the left lower extremity. Consider use of diuretics when the electrolytes are stabilizing Continue to use compression stockings Nausea Likely relates to recent chemotherapy Treat symptomatically Urinary tract infection Has been on Augmentin, this might have contributed to nausea Will switch to ciprofloxacin by mouth Thrombocytopenia, anemia. This is likely due to chemotherapy. Stopped aspirin Monitor counts closely - Discharge Data Discharge Date: 09/02/17 Discharge Disposition: Home, Self-Care 01 Condition: Good - Discharge Diagnosis/Problem(s) (1) Hypokalemia SNOMED Code(s): 74912733 ICD Code: E87.6 - HYPOKALEMIA Status: Acute Current Visit: Yes (2) Hypomagnesemia SNOMED Code(s): 695521747 ICD Code: E83.42 - HYPOMAGNESEMIA Status: Acute Current Visit: Yes - Patient Instructions Diet: Usual Diet as Tolerated Activity: As Tolerated - Discharge Plan Prescriptions/Med Rec: Ciprofloxacin HCl 250 mg PO BID #6 tablet Magnesium Oxide 250 mg PO BIDM #60 tablet Home Medications: Home Meds Calcium Carbonate [Tums] 2 tab PO ASDIRECTED PRN 05/24/14 [History] Colesevelam [Welchol] 1,875 mg PO BID 05/24/14 [History] Lutein/Minerals/Vit A,C & E [I-Chau] 2 cap PO DAILY 05/24/14 [History] Acetaminophen [Tylenol Extra Strength] 500 mg PO Q6H PRN 10/11/14 [History] Hypromellose [GenTeal Mild to Moderate Ophth Soln] 1 drop EYEBOTH TID PRN [History] Lidocaine/Prilocaine [EMLA Crm] 1 applic TOP DAILY PRN 06/21/17 [History] Ondansetron HCl [Zofran] 8 mg PO Q8HR PRN 06/21/17 [History] Potassium Chloride [Klor-Con 10] 20 meq PO TID 06/21/17 [History] Prochlorperazine Maleate [Compazine] 10 mg PO Q6HR PRN 06/21/17 [History] Pyridoxine HCl [Vitamin B-6] 100 mg PO DAILY 06/21/17 [History] Terconazole [Terazol 7] 1 applic TOP DAILY PRN 06/21/17 [History] Calcium Citrate 200 mg PO DAILY 08/16/17 [History] Latanoprost [Xalatan 0.005% Ophth Soln] 1 drop EYELF BEDTIME 08/16/17 [History] Loperamide [Imodium] 2 mg PO Q8HR PRN 08/16/17 [History] Ciprofloxacin HCl 250 mg PO BID #6 tablet 09/02/17 [Rx] Magnesium Oxide 250 mg PO BIDM #60 tablet 09/02/17 [Rx] Referrals: PCP,None [Primary Care Provider] - (in 2 days (on ) to check cbc (chemo , ) bmp, mg, phos (hypokalemia, hypomagnesemia)) - Discharge Summary/Plan Comment DC Time >30 min.: No - General Info Date of Service: 09/02/17 - Review of Systems General: Denies: Fever, Weakness Pulmonary: Denies: Shortness of Breath Cardiovascular: Denies: Chest Pain Gastrointestinal: Denies: Abdominal Pain Skin: Denies: Rash Psychiatric: Reports: Confusion (Chronic) - Patient Data Vitals - Most Recent: Last Vital Signs Temp 36.4 C 09/02/17 07:34 Pulse 86 09/02/17 07:34 Resp 20 09/02/17 07:34 BP 118/78 09/02/17 07:34 Pulse Ox 95 09/02/17 07:34 Weight - Most Recent: 77.111 kg I&O - Last 24 hours: Intake & Output 09/01/17 09/02/17 09/02/17 22:59 06:59 14:59 Intake Total 342 278 Output Total 100 225 Balance 242 53 Lab Results - Last 24 hrs: Laboratory Results - last 24 hr 09/02/17 09/02/17 09/02/17 Range/Units 01:50 06:13 06:13 WBC 2.8 L (5.0-10.0) 10^3/uL RBC 2.45 L (4.2-5.4) 10^6/uL Hgb 8.4 L D (12.0-16.0) g/dL Hct 26.6 L (37.0-47.0) % MCV 108.6 H (80-100) fL MCH 34.3 H (27.0-34.0) pg MCHC 31.6 L (33.0-35.0) g/dL Plt Count 39 L* (150-450) 10^3/uL Neut % (Auto) 66.4 (42.2-75.2) % Lymph % (Auto) 23.6 (20.5-50.1) % [place] % (Auto) 10.0 H (2-8) % Eos % (Auto) 0.0 L (1.0-3.0) % Baso % (Auto) 0.0 (0.0-1.0) % Sodium 138 (135-145) mmol/L Potassium 3.7 (3.6-5.0) mmol/L Chloride 103 (101-111) mmol/L Carbon Dioxide 25.0 (21.0-31.0) mmol/L Anion Gap 13.7 BUN 8 (7-18) mg/dL Creatinine 0.7 (0.6-1.3) mg/dL Est Cr Clr Drug Dosing 54.01 mL/min Estimated GFR (MDRD) > 60 Glucose 86 (74-105) mg/dL Calcium 8.0 L (8.4-10.2) mg/dl Magnesium 1.9 (1.8-2.5) mg/dL Urine Color Yellow (YELLOW) Urine Appearance Turbid (CLEAR) Urine pH 7.0 (5.0-9.0) Ur Specific [place] 1.020 (1.005-1.030) Urine Protein Trace H (NEGATIVE) Urine Glucose (UA) Negative (NEGATIVE) Urine Ketones 15 H (NEGATIVE) Urine Occult Blood Trace-intact H (NEGATIVE) Urine Nitrite Negative (NEGATIVE) Urine Bilirubin Small H (NEGATIVE) Urine Urobilinogen >=8.0 H (0.2-1.0) mg/dL Ur Leukocyte Esterase Trace H (NEGATIVE) Urine RBC 0-5 /HPF Urine WBC 0-5 (0-5/HPF) /HPF Ur Epithelial Cells Few /HPF Amorphous Sediment Many H (0/HPF) /HPF Urine Bacteria Many H (0-FEW/HPF) /HPF Med Orders - Current: Current Medications Acetaminophen (Tylenol) 650 mg PO Q4H PRN PRN Reason: Pain (Mild 1-3)/fever Amoxicillin/Clavulanate Potassium (Augmentin 500 Mg\125 Mg) 1 tab PO Q8HR [facility] Last Admin: 09/02/17 06:15 Dose: 1 tab Artificial Tears (Liquitears 1.4% Ophth Soln) 0 ml EYEBOTH TID PRN PRN Reason: Dry Eyes Aspirin (Halfprin) 81 mg PO DAILY [facility] Last Admin: 09/02/17 08:51 Dose: 81 mg Latanoprost (Xalatan 0.005% Ophth Soln) 0 ml EYELF BEDTIME [facility] Last Admin: 09/01/17 21:58 Dose: 1 drop Magnesium Oxide (Magnesium Oxide) 250 mg PO BIDM [facility] Last Admin: 09/02/17 08:51 Dose: 250 mg Ondansetron HCl (Zofran Odt) 8 mg PO Q8H PRN PRN Reason: NAUSEA/VOMITING Last Admin: 09/02/17 08:50 Dose: 8 mg Potassium Chloride (Klor-Con 10) 20 meq PO TID [facility] Last Admin: 09/02/17 08:51 Dose: 20 meq Pyridoxine HCl (Vitamin B6-Pyridoxine) 100 mg PO DAILY [facility] Last Admin: 09/02/17 08:51 Dose: 100 mg Sodium Chloride (Saline Flush) 10 ml FLUSH ASDIRECTED PRN PRN Reason: Keep Vein Open Zolpidem Tartrate (Ambien) 5 mg PO BEDTIME PRN PRN Reason: Sleep Discontinued Medications Magnesium Sulfate 2 gm/ Premix 50 mls @ 25 mls/hr IV ONETIME ONE Stop: 09/01/17 18:19 Last Admin: 09/01/17 16:54 Dose: 25 mls/hr Potassium Chloride 20 meq/ (Premix) 100 mls @ 50 mls/hr IV ONETIME ONE Stop: 09/01/17 18:20 Last Admin: 09/01/17 16:44 Dose: 50 mls/hr Sodium Chloride (Normal Saline) 1,000 mls @ 150 mls/hr IV .BOLUS ONE Stop: 09/01/17 23:01 Last Admin: 09/01/17 16:32 Dose: 150 mls/hr Magnesium Sulfate 2 gm/ Premix 50 mls @ 25 mls/hr IV ONETIME ONE Stop: 09/01/17 19:19 Last Admin: 09/01/17 17:53 Dose: Not Given Magnesium Sulfate 2 gm/ Premix 50 mls @ 25 mls/hr IV ONETIME ONE Stop: 09/02/17 00:59 Last Admin: 09/01/17 22:35 Dose: 25 mls/hr Potassium Chloride 10 meq/ (Premix) 100 mls @ 100 mls/hr IV Q2HR YEVGENIY Stop: 09/02/17 04:59 Last Admin: 09/02/17 04:02 Dose: 100 mls/hr Iopamidol (Isovue-300 (61%)) 50 ml IVPUSH ONETIME ONE Stop: 09/01/17 15:42 Last Admin: 09/01/17 15:48 Dose: 50 ml Ondansetron HCl (Zofran) 4 mg IV ONETIME ONE Stop: 09/01/17 16:24 Last Admin: 09/01/17 16:32 Dose: 4 mg - Exam General: Reports: Alert Lungs: Reports: Clear to Auscultation, Normal Respiratory Effort Cardiovascular: Reports: Regular Rate, Regular Rhythm GI/Abdominal Exam: Normal Bowel Sounds, Soft, Non-Tender Extremities: Normal Inspection, Pedal Edema (Left more pronounced than right) Psy/Mental Status: Reports: Alert, Normal Mood *Q Meaningful Use (DIS) - VTE *Q VTE Criteria *Q: - Stroke *Q Stroke Criteria *Q: - AMI *Q AMI Criteria *Q:
[2017-09-02 11:21] VITALS: BP 116/70
--- NOTE | 2017-09-02 12:36 | US ---
CLINICAL HISTORY: 72-year-old female with known lung malignancy, hospitalized (bed rest) and swollen right lower extremity ("negative" evaluation left lower extremity for DVT). INTERPRETATION: Abnormal. Intraluminal echogenic thrombus and noncompressibility femoral vein right thigh (nonphasic augmentati on ipsilateral popliteal vein distally consistent with this proximal obstruction. CONCLUSION: Deep vein thrombosis (DVT) right thigh. CRITICAL EXAM. Nurses notified on the floor.
--- NOTE | 2017-09-04 08:34 | EKG ---
09/01/2017- MIRLANDE ROBLEDO - EKG per my reading shows sinus tachycardia at the rate of 90s. [facility] /[id number]
== END 2017-09-02 13:51 ==
LOC: DL.ED 12:25 → DL.MS 17:14 → UNDOADMOB 17:15 → DL.MS 17:15
PROVIDERS: ADMIT Internal Medicine; ATTEND Internal Medicine
DX: E87.6 Hypokalemia (principal); E83.42 Hypomagnesemia; R60.0 Localized edema; N39.0 Urinary tract infection, site not specified; I10 Essential (primary) hypertension; E78.00 Pure hypercholesterolemia, unspecified; E66.9 Obesity, unspecified; Z68.30 Body mass index [BMI] 30.0-30.9, adult; Z88.8 Allergy status to other drugs, medicaments and biological substances; Z98.890 Other specified postprocedural states; Z90.49 Acquired absence of other specified parts of digestive tract; Z79.82 Long term (current) use of aspirin; Z79.2 Long term (current) use of antibiotics; Z98.51 Tubal ligation status; Z79.899 Other long term (current) drug therapy; R41.82 Altered mental status, unspecified
CPT/HCPCS: 36415; 70470; 80048; 81001; 82140; 82150; 83690; 83735; 85025; 85379; 93005; 93010; 93971; 96365; 96366; 96368; 96375; 99283; 99285; A9270; G0378; J2405; J3480; J7030; Q9967; 99217; 99220; J3475

== ENCOUNTER 2017-10-21 10:47 | Inpatient (IN) | payer MEDICARE, OTHER ==
--- NOTE | 2017-10-21 11:25 | EDM.PDOC ---
ED HPI GENERAL MEDICAL PROBLEM - General Chief Complaint: Back Pain or Injury Stated Complaint: SORE BACK AND VERY WEAK, [id number] Time Seen by Provider: 10/21/17 11:00 Source of Information: Reports: Patient, Family, RN, RN Notes Reviewed History Limitations: Reports: Altered Mental Status (at times) - History of Present Illness INITIAL COMMENTS - FREE TEXT/NARRATIVE: Pt presents to the ER with with c/o back pain and severe weakness. states that she recently had an MRI and has been taking oxycodone for the pain. He states she has been getting Magnesium infusions daily throughout the week. Pt states she is very weak, and unable to get up with her walker at times. She rates the back pain 6/10. Onset: Gradual Location: Reports: Back Quality: Reports: Sharp Severity: Moderate Improves with: Reports: None Worsens with: Reports: Movement Associated Symptoms: Reports: No Other Symptoms Right Lower Back Pain Score (Numeric/FACES): 8 - Related Data Allergies Allergy/AdvReac Type Severity Reaction Status Date / Time meperidine HCl [From Demerol] Allergy Anxiety Verified 09/01/17 18:22 Home Meds: Home Meds Calcium Carbonate [Tums] 2 tab PO ASDIRECTED PRN 05/24/14 [History] Acetaminophen [Tylenol Extra Strength] 500 mg PO Q6H PRN 10/11/14 [History] Hypromellose [GenTeal Mild to Moderate Ophth Soln] 1 drop EYEBOTH TID PRN [History] Potassium Chloride [Klor-Con 10] 20 meq PO TID 06/21/17 [History] Enoxaparin Sodium [Lovenox] 1 ml SQ DAILY 10/21/17 [History] Magnesium Oxide 1 tab PO DAILY 10/21/17 [History] Ondansetron HCl [Zofran] 1 tab PO ASDIRECTED PRN 10/21/17 [History] Pantoprazole Sodium [Protonix] 1 tab PO BID 10/21/17 [History] oxyCODONE HCl/Acetaminophen [oxyCODONE-Acetaminophen 5-325] 1 tab PO ASDIRECTED PRN 10/21/17 [History] Past Medical History HEENT 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: Cataract, Impaired Vision, Macular Degeneration Other HEENT History: facial fracture Cardiovascular 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: High Cholesterol, Hypertension Other Cardiovascular History: hyperlipidemia+ Respiratory 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: None Gastrointestinal 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: Diverticulosis Genitourinary 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: None TAB CUTTER 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: , Other (See Below) Other OB/BYN History: miscarriage Musculoskeletal 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: None Other Musculoskeletal History: fx clavicle Neurological 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: None Psychiatric 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: None Endocrine/Metabolic 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: Obesity/BMI 30+ Hematologic 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: None Immunologic 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: Immunosuppression Oncologic (Cancer) 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: Other (See Below) Other Oncologic History: vulvar Dermatologic 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: None - Infectious Disease History Infectious Disease 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: Chicken Pox, Measles, Mumps - Past Surgical History HEENT Surgical 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: Cataract Surgery Cardiovascular Surgical 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: None Respiratory Surgical 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: None GI Surgical 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: Cholecystectomy Female Surgical 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: Tubal Ligation Endocrine Surgical 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: None Neurological Surgical 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: None Musculoskeletal Surgical 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: Other (See Below) Other Musculoskeletal Surgeries/Procedures:: jaw surgery Oncologic Surgical 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: Other (See Below) Other Oncologic Surgeries/Procedures: 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 Dermatological Surgical 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: None Social & Family History - Family History Family Medical History: Noncontributory - Tobacco Use Smoking Status *Q: Never Smoker Month Tobacco Last Used: 12/15/1978 Second Hand Smoke Exposure: No - Caffeine Use Caffeine Use: Reports: Coffee, Soda, Tea Other Caffeine Use: RARELY - Alcohol Use Days Per Week of Alcohol Use: 0 - Recreational Drug Use Recreational Drug Use: No Drug Use in Last 12 Months: No ED ROS GENERAL - Review of Systems Review Of Systems: ROS reveals no pertinent complaints other than HPI. ED EXAM,LOWER BACK PAIN/INJURY - Physical Exam Exam: See Below Exam Limited By: Altered Mental Status (at times) General Appearance: Alert, WD/WN, No Apparent Distress Eye Exam: Bilateral Eye: EOMI, Normal Inspection Ears: Normal External Exam, Hearing Grossly Normal Nose: Normal Inspection, Normal Mucosa, No Blood Throat/Mouth: Normal Inspection, No Airway Compromise Head: Atraumatic, Normocephalic Neck: Normal Inspection, Supple, Non-Tender, Full Range of Motion Respiratory/Chest: No Respiratory Distress, Lungs Clear, Normal Breath Sounds, No Accessory Muscle Use, Chest Non-Tender Cardiovascular: Normal Peripheral Pulses, Regular Rate, Rhythm, No Edema, No Gallop, No JVD, No Murmur, No Rub GI/Abdominal: Normal Bowel Sounds, Soft, Non-Tender, No Organomegaly, No Distention, No Abnormal Bruit, No Mass (Female) Exam: Deferred Rectal (Female) Exam: Deferred Back Exam: Normal Inspection, CVA Tenderness (L), CVA Tenderness (R), Decreased Range of Motion, Vertebral Tenderness Extremities: Normal Inspection, Non-Tender, No Pedal Edema, Normal Capillary Refill, Limited Range of Motion Neurological: Alert, Normal Mood/Affect, Oriented x 3 Psychiatric: Normal Affect, Normal Mood Skin Exam: Warm, Dry, Intact, No Rash, Pallor Lymphatic: No Adenopathy Course - Vital Signs Last Recorded V/S: Last Vital Signs Temp 97.4 F 10/21/17 10:54 Pulse 98 10/21/17 10:54 Resp 20 10/21/17 10:54 BP 125/93 H 10/21/17 10:54 Pulse Ox 96 10/21/17 10:54 - Orders/Labs/Meds Orders: Active Orders 24 hr Category Date Time Status UA W/MICROSCOPIC [URIN] Stat Lab 10/21/17 13:32 Received Sodium Chloride 0.9% [Normal Saline] 1,000 ml Med 10/21/17 13:19 Active IV .BOLUS Medication Orders Sodium Chloride (Normal Saline) 1,000 mls @ 250 mls/hr IV .BOLUS ONE Stop: 10/21/17 17:18 Last Admin: 10/21/17 13:28 Dose: 250 mls/hr Labs: Laboratory Tests 10/21/17 10/21/17 Range/Units 11:22 11:22 WBC 5.4 (5.0-10.0) 10^3/uL RBC 3.26 L (4.2-5.4) 10^6/uL Hgb 10.6 L D (12.0-16.0) g/dL Hct 33.0 L (37.0-47.0) % MCV 101.2 H D (80-100) fL MCH 32.5 (27.0-34.0) pg MCHC 32.1 L (33.0-35.0) g/dL Plt Count 148 L D (150-450) 10^3/uL Neut % (Auto) 70.0 (42.2-75.2) % Lymph % (Auto) 16.1 L (20.5-50.1) % [place] % (Auto) 10.0 H (2-8) % Eos % (Auto) 3.7 H (1.0-3.0) % Baso % (Auto) 0.2 (0.0-1.0) % Sodium 136 (135-145) mmol/L Potassium 3.9 (3.6-5.0) mmol/L Chloride 102 (101-111) mmol/L Carbon Dioxide 24.0 (21.0-31.0) mmol/L Anion Gap 13.9 BUN 7 (7-18) mg/dL Creatinine 0.6 (0.6-1.3) mg/dL Est Cr Clr Drug Dosing 63.01 mL/min Estimated GFR (MDRD) > 60 BUN/Creatinine Ratio 11.66 Glucose 108 H (74-105) mg/dL Calcium 8.8 (8.4-10.2) mg/dl Magnesium 1.6 L (1.8-2.5) mg/dL Total Bilirubin 0.6 (0.2-1.0) mg/dL AST 43 H (10-42) IU/L ALT 39 (10-60) IU/L Alkaline Phosphatase 90 (42-121) IU/L Total Protein 5.8 L (6.7-8.2) g/dl Albumin 2.8 L (3.2-5.5) g/dl Globulin 3.0 Albumin/Globulin Ratio 0.93 Meds: Medications Generic Name Dose Route Start Last Admin Trade Name Freq PRN Reason Stop Dose Admin Sodium Chloride 1,000 mls @ 250 mls/hr 10/21/17 13:19 10/21/17 13:28 Normal Saline IV 10/21/17 17:18 250 mls/hr .BOLUS ONE Administration - Radiology Interpretation Free Text/Narrative:: Patient admitted to observation on the medical floor per Dr. Peralta Departure - Departure Time of Disposition: 13:50 Disposition: Refer to Observation Condition: Poor Clinical Impression: Hypomagnesemia, Weakness - Discharge Information Forms: ED Department Discharge - My Orders Last 24 Hours: My Active Orders 10/21/17 13:19 Sodium Chloride 0.9% [Normal Saline] 1,000 ml IV .BOLUS 10/21/17 13:32 UA W/MICROSCOPIC [URIN] Stat - Assessment/Plan Last 24 Hours: My Active Orders 10/21/17 13:19 Sodium Chloride 0.9% [Normal Saline] 1,000 ml IV .BOLUS 10/21/17 13:32 UA W/MICROSCOPIC [URIN] Stat
[2017-10-21 11:47] LABS: CHLORIDE,CL 102 mmol/L (101-111); SODIUM,NA 136 mmol/L (135-145)
[2017-10-21] MEDS ORDERED: Sodium Chloride 0.9% 1,000 ML IV ONE (13:19)
[2017-10-21] MEDS ORDERED: cefTRIAXone 1 GM in Sodium Chloride 0.9% 50 ML IV SCH (14:15)
[2017-10-21] MEDS ORDERED: Zolpidem 5 MG Tab PO PRN (14:55)
[2017-10-21] MEDS ORDERED: Acetaminophen 325 MG Tab PO PRN (14:55)
--- NOTE | 2017-10-21 15:05 | PCM.HP ---
H&P History of Present Illness - General Date of Service: 10/21/17 Admit Problem/Dx: Admission Diagnosis/Problem Admission Diagnosis/Problem Weakness Source of Information: Patient, Family (), Provider (ER nurse practitioner) Right Lower Back Pain Score (Numeric/FACES): 8 - Related Data Allergies/Adverse Reactions: Allergies Allergy/AdvReac Type Severity Reaction Status Date / Time meperidine HCl [From Demerol] Allergy Anxiety Verified 09/01/17 18:22 Home Medications: Home Meds Calcium Carbonate [Tums] 1,000 mg PO ASDIRECTED PRN 05/24/14 [History] Acetaminophen [Tylenol Extra Strength] 500 mg PO Q6H PRN 10/11/14 [History] Hypromellose [GenTeal Mild to Moderate Ophth Soln] 1 drop EYEBOTH TID PRN [History] Potassium Chloride [Klor-Con 10] 20 meq PO TID 06/21/17 [History] Enoxaparin Sodium [Lovenox] 100 mg SQ DAILY 10/21/17 [History] Magnesium Oxide 400 mg PO DAILY 10/21/17 [History] Ondansetron HCl [Zofran] 8 mg PO ASDIRECTED PRN 10/21/17 [History] Pantoprazole Sodium [Protonix] 40 mg PO BID 10/21/17 [History] oxyCODONE HCl/Acetaminophen [oxyCODONE-Acetaminophen 5-325] 1 tab PO ASDIRECTED PRN 10/21/17 [History] Past Medical History HEENT 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: Cataract, Impaired Vision, Macular Degeneration Other HEENT History: facial fracture Cardiovascular 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: Blood Clots/VTE/DVT, High Cholesterol, Hypertension Other Cardiovascular History: hyperlipidemia+ Respiratory 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: None, Sleep Apnea Gastrointestinal 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: Diverticulosis Genitourinary 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: UTI, Recurrent 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: , Other (See Below) Other OB/BYN History: miscarriage Musculoskeletal 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: None, Other (See Below) Other Musculoskeletal History: fx clavicle, new back pain Neurological 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: TIA Psychiatric 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: None Endocrine/Metabolic 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: Obesity/BMI 30+ Hematologic 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: None Immunologic 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: Immunosuppression Oncologic (Cancer) 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: Other (See Below) Other Oncologic History: vulvar Dermatologic 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: None - Infectious Disease History Infectious Disease 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: Chicken Pox, Measles, Mumps, Shingles - Past Surgical History HEENT Surgical 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: Cataract Surgery Cardiovascular Surgical 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: None Respiratory Surgical 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: None GI Surgical 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: Cholecystectomy, Colonoscopy, EGD Female Surgical 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: Tubal Ligation Endocrine Surgical 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: None Neurological Surgical 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: None Musculoskeletal Surgical 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: Other (See Below) Other Musculoskeletal Surgeries/Procedures:: jaw surgery Oncologic Surgical 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: Other (See Below) Other Oncologic Surgeries/Procedures: 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 Dermatological Surgical 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: None Social & Family History - Family History Family Medical History: Noncontributory Cardiac: Reports: [place] Oncologic: Reports: Brain, Lung - Tobacco Use Smoking Status *Q: Former Smoker Years of Tobacco use: 15 Packs/Tins Daily: 0.5 Used Tobacco, but Quit: Yes Month Tobacco Last Used: october Second Hand Smoke Exposure: No - Caffeine Use Caffeine Use: Reports: Coffee, Soda, Tea Other Caffeine Use: RARELY - Alcohol Use Days Per Week of Alcohol Use: 0 - Recreational Drug Use Recreational Drug Use: No Drug Use in Last 12 Months: No H&P Review of Systems - Review of Systems: Review Of Systems: See Below General: Reports: Weakness, Fatigue. Denies: Fever Pulmonary: Reports: Shortness of Breath (With activity). Denies: Wheezing, Pleuritic Chest Pain, Cough Cardiovascular: Reports: Edema (Mostly left leg) Gastrointestinal: Reports: Diarrhea, Nausea. Denies: Abdominal Pain Exam - Exam Exam: See Below - Vital Signs Vital Signs: Last Vital Signs Temp 36.8 C 10/21/17 14:06 Pulse 87 10/21/17 14:06 Resp 18 10/21/17 14:06 BP 131/85 10/21/17 14:06 Pulse Ox 98 10/21/17 14:06 Weight: 71.305 kg - Exam General: Alert, Oriented HEENT: EOMI Neck: Supple Lungs: Clear to Auscultation, Normal Respiratory Effort Cardiovascular: Regular Rate, Regular Rhythm GI/Abdominal Exam: Normal Bowel Sounds, Soft, Non-Tender, No Organomegaly Extremities: Pedal Edema (1+ left lower extremity) Skin: Warm, Dry Neuro Extensive - Mental Status: Alert, Oriented x3, Normal Mood/Affect Neuro Extensive - Motor, Sensory, Reflexes: Tremor Psychiatric: Alert, Normal Affect, Normal Mood - Patient Data Result Diagrams: 10/21/17 11:22 10/21/17 11:22 *Q Meaningful Use (ADM) - VTE *Q VTE Criteria *Q: - Stroke *Q Stroke Criteria *Q: - AMI *Q AMI Criteria *Q: - Problem List (1) Hypomagnesemia SNOMED Code(s): 642965664 ICD Code: E83.42 - HYPOMAGNESEMIA Status: Acute Current Visit: Yes (2) Weakness SNOMED Code(s): 52315035 ICD Code: R53.1 - WEAKNESS Status: Acute Current Visit: Yes (3) UTI, Urinary tract infectious disease SNOMED Code(s): 31543390 ICD Code: N39.0 - URINARY TRACT INFECTION, SITE NOT SPECIFIED Status: Acute Current Visit: No Problem List Initiated/Reviewed/Updated: Yes Orders Last 24hrs: Active Orders 24 hr Category Date Time Status Patient Status [ADT] Routine ADT 10/21/17 14:55 Active Antiembolic Devices [RC] PER UNIT ROUTINE Care 10/21/17 14:57 Active Oxygen Therapy [RC] PRN Care 10/21/17 14:55 Active Peripheral IV Care [RC] . DIRECTED Care 10/21/17 14:57 Active Up With Assistance [RC] ASDIRECTED Care 10/21/17 14:55 Active VTE/DVT Education [RC] PER UNIT ROUTINE Care 10/21/17 14:55 Active Vital Signs [RC] Q4H Care 10/21/17 14:55 Active OT Evaluation and Treatment [CONS] Routine Cons 10/21/17 14:07 Active PT Evaluation and Treatment [CONS] Routine Cons 10/21/17 14:07 Active Regular Diet [DIET] Diet 10/21/17 Dinner Active BASIC METABOLIC PANEL,BMP [CHEM] AM Lab 10/22/17 05:15 Ordered CBC WITH AUTO DIFF [HEME] AM Lab 10/22/17 05:15 Ordered CULTURE BLOOD [BC] Stat Lab 10/21/17 13:29 Received CULTURE BLOOD [BC] Stat Lab 10/21/17 13:31 Received CULTURE URINE [RM] Routine Lab 10/21/17 13:32 Received LACTIC ACID [CHEM] Routine Lab 10/21/17 13:29 Received MAGNESIUM [CHEM] AM Lab 10/22/17 05:11 Ordered PHOSPHORUS [CHEM] AM Lab 10/22/17 05:11 Ordered Acetaminophen [Tylenol] Med 10/21/17 14:55 Ordered 650 mg PO Q4H PRN Acetaminophen/oxyCODONE [Percocet 325-5 MG] Med 10/21/17 14:53 Ordered 1 tab PO Q4H PRN Enoxaparin [Lovenox] Med 10/22/17 09:00 Ordered 100 mg SUBCUT DAILY Lidocaine 5% [Lidoderm 5%] Med 10/21/17 15:00 Ordered 700 mg TOP Q24H Magnesium Oxide [Magnesium Oxide] Med 10/21/17 21:00 Ordered 400 mg PO TID Magnesium Sulfate/D5W [Magnesium 1 GM in D5W 100 ML] 1 Med 10/21/17 14:00 Active gm Premix Bag 1 bag IV Q1H Ondansetron [Zofran ODT] Med 10/21/17 14:55 Ordered 4 mg PO Q6H PRN Ondansetron [Zofran] Med 10/21/17 14:55 Ordered 4 mg IVPUSH Q6H PRN Pantoprazole [ProTONIX] Med 10/21/17 21:00 Ordered 40 mg PO BID Potassium Chloride [Klor-Con 10] Med 10/21/17 21:00 Ordered 20 meq PO TID Sodium Chloride 0.9% [Saline Flush] Med 10/21/17 14:55 Ordered 10 ml FLUSH ASDIRECTED PRN Zolpidem [Ambien] Med 10/21/17 14:55 Ordered 5 mg PO BEDTIME PRN cefTRIAXone [Rocephin] 1 gm Med 10/21/17 15:00 Active Sodium Chloride 0.9% [Normal Saline] 50 ml IV Q24H Antiembolic Hose [OM.PC] Per Unit Routine Oth 10/21/17 14:56 Ordered Blood Culture x2 Reflex Set [OM.PC] Stat Oth 10/21/17 14:09 Ordered Peripheral IV Insertion Adult [OM.PC] Routine Oth 10/21/17 14:55 Ordered Saline Lock Insert [OM.PC] Routine Oth 10/21/17 14:55 Ordered Resuscitation Status Routine Resus Stat 10/21/17 14:55 Ordered Medication Orders Enoxaparin Sodium (Lovenox) 100 mg SUBCUT DAILY [facility]EVGEN[facility] Magnesium Sulfate/Dextrose 1 (gm/ Premix) 100 mls @ 100 mls/hr IV Q1H [facility] Stop: 10/21/17 17:59 Ceftriaxone Sodium 1 gm/ (Sodium Chloride) 50 mls @ 100 mls/hr IV Q24H [facility] Lidocaine (Lidoderm 5%) 700 mg TOP Q24H [facility] Non-Formulary Medication (Magnesium Oxide [Magnesium Oxide]) 400 mg PO TID [facility]EVGENI[facility] Oxycodone/Acetaminophen (Percocet 325-5 Mg) 1 tab PO Q4H PRN PRN Reason: Pain Pantoprazole Sodium (Protonix) 40 mg PO BID [facility] Potassium Chloride (Klor-Con 10) 20 meq PO TID [facility] Assessment/Plan Comment:: The patient is a 72-year-old lady with a history of vulvar cancer status post chemotherapy. The patient has been living with the . Practically every day has to go to the emergency room for IV magnesium or potassium supplement. She has been increasingly weak. She developed back pain due to T8 compression fractures. The pain is moderate to severe worse with activity better with rest, taking oxycodone in the evening. The patient came to the emergency room today with weakness, concern that is not able to take care of her anymore at home. #1 weakness This is likely multifactorial due to chronic medical issues including vulvar carcinoma status post chemotherapy, recurrent nausea, vomiting, diarrhea due to colitis. Chronic electrolyte abnormalities I will have physical and occupational therapy evaluate and treat the patient. We'll have to look at discharge obstinance to [facility] where IV magnesium and potassium can be supplemented. #2 hypomagnesemia We will give for grams IV supplement. Recheck potassium magnesium and phosphorus in the morning #3 back pain due to T8 compression fracture Start Lidoderm patch Use oxycodone as needed #4 appears to have an acute urinary tract infection Will check urine culture Start the patient empirically on ceftriaxone #5 right lower extremity DVT Status post implantation and then removal of inferior vena cava filter For now continue Lovenox #6 nausea, vomiting, diarrhea This has been chronic Treat symptomatically
[2017-10-21] MEDS: Lidocaine 5% 700 MG Patch TOP SCH (15:28)
[2017-10-21] MEDS: cefTRIAXone 1 GM in Sodium Chloride 0.9% 50 ML IV SCH (15:28)
[2017-10-21] MEDS: Pantoprazole 40 MG Tab.CR PO SCH (16:55)
[2017-10-21] MEDS: Potassium Chloride 10 MEQ Tab.ER PO SCH (17:57)
[2017-10-21] MEDS ORDERED: Non-Formulary Medication 1 Each (Magnesium Oxide [Magnesium Oxide] 400 MG) PO SCH (21:00)
[2017-10-21] MEDS: Acetaminophen/oxyCODONE 325-5 MG Tab PO PRN (21:43)
[2017-10-21] MEDS: Ondansetron 4 MG Tab.DIS PO PRN (21:46)
[2017-10-22] MEDS: Acetaminophen/oxyCODONE 325-5 MG Tab PO PRN ×4 (03:59→21:31)
[2017-10-22] MEDS: Pantoprazole 40 MG Tab.CR PO SCH ×2 (06:35→16:59)
[2017-10-22 07:01] LABS: CHLORIDE,CL 104 mmol/L (101-111); SODIUM,NA 136 mmol/L (135-145)
[2017-10-22] MEDS: Enoxaparin 100 MG/1 ML Syringe SUBCUT SCH (08:39)
[2017-10-22] MEDS: Lidocaine 5% 700 MG Patch TOP SCH (08:39)
[2017-10-22] MEDS: Potassium Chloride 10 MEQ Tab.ER PO SCH ×3 (08:39→16:59)
[2017-10-22] MEDS: Sodium Chloride 0.9% 10 ML Syringe FLUSH PRN ×2 (08:53→15:41)
[2017-10-22] MEDS: Ondansetron 4 MG/2 ML SDV IVPUSH PRN ×2 (08:53→17:03)
--- NOTE | 2017-10-22 10:59 | PCM.PN ---
- General Info Date of Service: 10/22/17 Admission Dx/Problem (Free Text): Admission Diagnosis/Problem Admission Diagnosis/Problem Weakness Subjective Update: She is feeling well, continues to have back pain still. The pain is moderate, only present with activity. No nausea or vomiting. No fever. Continues to have weakness Functional Status: Reports: Pain Controlled, Tolerating Diet - Review of Systems General: Reports: Weakness. Denies: Fever Pulmonary: Denies: Shortness of Breath Cardiovascular: Reports: Edema (Left leg) Gastrointestinal: Denies: Abdominal Pain Genitourinary: Denies: Dysuria Neurological: Denies: Confusion - Patient Data Vitals - Most Recent: Last Vital Signs Temp 36.7 C 10/22/17 06:51 Pulse 83 10/22/17 06:51 Resp 20 10/22/17 06:51 BP 121/75 10/22/17 06:51 Pulse Ox 97 10/22/17 06:51 Weight - Most Recent: 71.305 kg I&O - Last 24 Hours: Intake & Output 10/21/17 10/22/17 10/22/17 22:59 06:59 14:59 Intake Total 300 406 Output Total 550 950 Balance -250 -544 Lab Results Last 24 Hours: Laboratory Results - last 24 hr 10/22/17 10/22/17 Range/Units 05:55 05:55 WBC 3.6 L (5.0-10.0) 10^3/uL RBC 3.00 L (4.2-5.4) 10^6/uL Hgb 9.8 L (12.0-16.0) g/dL Hct 30.6 L (37.0-47.0) % MCV 102.0 H (80-100) fL MCH 32.7 (27.0-34.0) pg MCHC 32.0 L (33.0-35.0) g/dL Plt Count 140 L (150-450) 10^3/uL Neut % (Auto) 58.2 (42.2-75.2) % Lymph % (Auto) 25.0 (20.5-50.1) % [place] % (Auto) 11.5 H (2-8) % Eos % (Auto) 5.3 H (1.0-3.0) % Baso % (Auto) 0.0 (0.0-1.0) % Add Manual Diff Yes Neutrophils % (Manual) 63 (42-75) % Lymphocytes % (Manual) 25 (20-50) % Monocytes % (Manual) 9 H (2-8) % Eosinophils % (Manual) 3 (1-3) % Sodium 136 (135-145) mmol/L Potassium 3.9 (3.6-5.0) mmol/L Chloride 104 (101-111) mmol/L Carbon Dioxide 25.0 (21.0-31.0) mmol/L Anion Gap 10.9 BUN 6 L (7-18) mg/dL Creatinine 0.7 (0.6-1.3) mg/dL Est Cr Clr Drug Dosing 54.01 mL/min Estimated GFR (MDRD) > 60 Glucose 86 (74-105) mg/dL Calcium 8.4 (8.4-10.2) mg/dl Phosphorus 3.9 (2.5-4.6) mg/dL Magnesium 2.2 (1.8-2.5) mg/dL Med Orders - Current: Current Medications Acetaminophen (Tylenol) 650 mg PO Q4H PRN PRN Reason: Pain (Mild 1-3)/fever Enoxaparin Sodium (Lovenox) 100 mg SUBCUT DAILY [facility] Last Admin: 10/22/17 08:39 Dose: 100 mg Ceftriaxone Sodium 1 gm/ (Sodium Chloride) 50 mls @ 100 mls/hr IV Q24H [facility] Last Admin: 10/21/17 15:28 Dose: 100 mls/hr Lidocaine (Lidoderm 5%) 700 mg TOP DAILY [facility] Last Admin: 10/22/17 08:39 Dose: 700 mg Magnesium Oxide (Magnesium Oxide) 250 mg PO TID [facility] Last Admin: 10/22/17 08:39 Dose: 250 mg Miscellaneous Information (Remove Patch) 1 ea TRDERM BEDTIME [facility] Last Admin: 10/21/17 23:32 Dose: Not Given Ondansetron HCl (Zofran Odt) 4 mg PO Q6H PRN PRN Reason: nausea, able to take PO Last Admin: 10/21/17 21:46 Dose: 4 mg Ondansetron HCl (Zofran) 4 mg IVPUSH Q6H PRN PRN Reason: Nausea/Vomiting Last Admin: 10/22/17 08:53 Dose: 4 mg Oxycodone/Acetaminophen (Percocet 325-5 Mg) 1 tab PO Q4H PRN PRN Reason: Pain Last Admin: 10/22/17 09:06 Dose: 1 tab Pantoprazole Sodium (Protonix) 40 mg PO BIDAC [facility] Last Admin: 10/22/17 06:35 Dose: 40 mg Potassium Chloride (Klor-Con 10) 20 meq PO TIDMEALS [facility] Last Admin: 10/22/17 08:39 Dose: 20 meq Sodium Chloride (Saline Flush) 10 ml FLUSH ASDIRECTED PRN PRN Reason: Keep Vein Open Last Admin: 10/22/17 08:53 Dose: 10 ml Zolpidem Tartrate (Ambien) 5 mg PO BEDTIME PRN PRN Reason: Sleep Discontinued Medications Sodium Chloride (Normal Saline) 1,000 mls @ 250 mls/hr IV .BOLUS ONE Stop: 10/21/17 17:18 Last Infusion: 10/21/17 17:38 Dose: Infused Magnesium Sulfate/Dextrose 1 (gm/ Premix) 100 mls @ 100 mls/hr IV Q1H [facility] Stop: 10/21/17 17:59 Last Admin: 10/21/17 23:31 Dose: 100 mls/hr Ceftriaxone Sodium 1 gm/ (Sodium Chloride) 50 mls @ 100 mls/hr IV Q24H [facility] Non-Formulary Medication (Magnesium Oxide [Magnesium Oxide]) 400 mg PO TID [facility] - Exam General: Alert, Oriented Neck: Supple Lungs: Clear to Auscultation Cardiovascular: Regular Rate, Regular Rhythm GI/Abdominal Exam: Normal Bowel Sounds, Soft, Non-Tender Extremities: Pedal Edema (Left leg) Neurological: No New Focal Deficit, Other (Tremor) - Problem List & Annotations (1) Hypomagnesemia SNOMED Code(s): 877110143 Code(s): E83.42 - HYPOMAGNESEMIA Status: Acute Current Visit: Yes (2) Weakness SNOMED Code(s): 07454466 Code(s): R53.1 - WEAKNESS Status: Acute Current Visit: Yes (3) UTI, Urinary tract infectious disease SNOMED Code(s): 83255064 Code(s): N39.0 - URINARY TRACT INFECTION, SITE NOT SPECIFIED Status: Acute Current Visit: No - Problem List Review Problem List Initiated/Reviewed/Updated: Yes - My Orders Last 24 Hours: My Active Orders 10/21/17 15:26 Patient Status [ADT] Routine 10/21/17 21:00 Magnesium Oxide 250 mg PO TID - Plan Plan:: The patient is a 72-year-old lady with a history of vulvar cancer status post chemotherapy. The patient has been living with the . Practically every day has to go to the emergency room for IV magnesium or potassium supplement. She has been increasingly weak. She developed back pain due to T8 compression fractures. The pain is moderate to severe worse with activity better with rest, taking oxycodone in the evening. The patient came to the emergency room today with weakness, concern that is not able to take care of her anymore at home. #1 weakness This is likely multifactorial due to chronic medical issues including vulvar carcinoma status post chemotherapy, recurrent nausea, vomiting, diarrhea due to colitis. Chronic electrolyte abnormalities Continue physical and occupational therapy evaluate and treat the patient. We'll have to look at discharge planning to possibly halfway where IV magnesium and potassium can be supplemented. #2 hypomagnesemia This was corrected. Recheck potassium magnesium and phosphorus in the morning I have increased oral supplement #3 back pain due to T8 compression fracture Started Lidoderm patch Use oxycodone as needed #4 appears to have an acute urinary tract infection urine culture: Preliminary report his Escherichia coli Started the patient empirically on ceftriaxone #5 right lower extremity DVT Status post implantation and then removal of inferior vena cava filter For now continue Lovenox Does have left lower extremity edema. Will obtain an ultrasound. Use Jace stockings. #6 nausea, vomiting, diarrhea This has been chronic Treat symptomatically
[2017-10-22] MEDS: cefTRIAXone 1 GM in Sodium Chloride 0.9% 50 ML IV SCH (15:41)
[2017-10-22] MEDS: metroNIDAZOLE/Normal Saline 500 MG in Premix Bag 100 BAG IV SCH (23:01)
[2017-10-23] MEDS: metroNIDAZOLE/Normal Saline 500 MG in Premix Bag 100 BAG IV SCH ×3 (06:15→22:03)
[2017-10-23] MEDS: Pantoprazole 40 MG Tab.CR PO SCH ×2 (06:15→17:47)
[2017-10-23] MEDS: Acetaminophen/oxyCODONE 325-5 MG Tab PO PRN (08:40)
[2017-10-23] MEDS: Potassium Chloride 10 MEQ Tab.ER PO SCH ×3 (08:44→17:48)
[2017-10-23] MEDS: Lidocaine 5% 700 MG Patch TOP SCH (08:46)
[2017-10-23] MEDS: Enoxaparin 100 MG/1 ML Syringe SUBCUT SCH (08:51)
[2017-10-23] MEDS: Ondansetron 4 MG Tab.DIS PO PRN (12:58)
[2017-10-23] MEDS: Sodium Chloride 0.9% 10 ML Syringe FLUSH PRN ×3 (14:29→19:53)
[2017-10-23] MEDS: cefTRIAXone 1 GM in Sodium Chloride 0.9% 50 ML IV SCH (15:40)
[2017-10-23] MEDS: Ondansetron 4 MG/2 ML SDV IVPUSH PRN (19:52)
[2017-10-23] MEDS ORDERED: Ondansetron 4 MG/2 ML SDV IVPUSH PRN (21:47)
[2017-10-23] MEDS: Acetaminophen/HYDROcodone 325-5 MG Tab PO PRN (22:20)
[2017-10-24] MEDS: metroNIDAZOLE/Normal Saline 500 MG in Premix Bag 100 BAG IV SCH ×3 (05:59→21:50)
[2017-10-24] MEDS: Sodium Chloride 0.9% 10 ML Syringe FLUSH PRN ×5 (06:02→21:52)
[2017-10-24] MEDS: Pantoprazole 40 MG Tab.CR PO SCH ×2 (06:05→17:00)
[2017-10-24] MEDS: Acetaminophen/HYDROcodone 325-5 MG Tab PO PRN ×2 (06:05→21:55)
[2017-10-24] MEDS: Ondansetron 4 MG Tab.DIS PO PRN ×3 (08:22→21:04)
--- NOTE | 2017-10-24 09:14 | PN ---
DATE: 10/23/2017 HISTORY OF PRESENT ILLNESS: Mehnaz Herman is a 72-year-old lady with multiple medical problems. She was admitted with increasing weakness as well as marked electrolyte imbalance. Other past medical history includes vulvar carcinoma, originally diagnosed in 2013. She was initially treated at [facility] with resection of the tumor and pelvic lymph node dissection. In 2015, she was found to have spread to inguinal nodes. In May 2017, she had a left lung biopsy and metastatic disease was found. She then underwent a 13-week course of radiation and chemotherapy in [place]. Her states that the chemotherapy was extremely difficult on her and they have made the decision to not pursue any further chemotherapy in the event that the cancer returns. She also has felt what appears to be possible colitis following the prolonged radiation and she now has chronic loose stools. She also has nausea and vomiting, making it difficult for her to take some of her medications. She has had low potassium and magnesium and has been treated multiple times in the recent past with IV repletion of the electrolytes. She has a T8 compression fracture and has chronic pain now due to this and has a Lidoderm patch, as well as oral oxycodone. Upon admission, she was found to have an acute urinary tract infection. Final urine culture today, shows E. coli, which is sensitive to the ceftriaxone which she is receiving. She has a history of a right lower extremity DVT. She was noted to have increased swelling of the left lower extremity, and a new Doppler ultrasound of the left lower extremity was performed today and showed no evidence for deep vein thrombosis in the left leg. She continues on enoxaparin for VTE prophylaxis. On admission, 2 sets of blood cultures were also drawn, and 1 anaerobic bottle out of 4 culture bottles was positive for gram-positive cocci in clusters. Final identification and sensitivity are pending. The hospitalist at that time added IV Flagyl to her IV Rocephin. Review of her clinical data shows that she is taking in more or less adequate fluids. Appetite is poor. Vital signs are stable, and she has remained afebrile. Nursing staff expressed concerns regarding her persistent nausea, making it difficult for her to take her pain medications. We did make slight change. We changed her from oxycodone to hydrocodone with a suggestion that they premedicate her with an ondansetron prior to giving her the pain med, this seemed to work overnight. PHYSICAL EXAMINATION: General: She is lying in her bed. She is in no distress. Mrs. Herman is well known to me and there is a marked change in her mental status. She voiced no new concerns or complaints. Vital Signs: Blood pressure is 129/82, pulse 96, respiratory rate 20, oxygen saturation 96% on room air. She is afebrile. HEENT: Unremarkable. ENT was clear. She has lost her hair secondary to the radiation and is wearing an old cap. Chest: Showed clear but diminished bilateral breath sounds. Heart: Showed regular rate and rhythm. Abdomen: Soft and benign. She states that she has some discomfort on the right lower quadrant, but on examination, palpation does not reproduce any type of pain. Extremities: Some increased size in the left lower extremity compared to the right, but the calf was soft and nontender. There were palpable peripheral pulses. Neurological: There were no gross motor or sensory deficits. However, it is clear that she is confused. LABORATORY DATA: Labs were performed yesterday, which showed a white count of 3.6, platelets of a 140,000, hemoglobin and hematocrit of 9.8 and 30.6. Electrolytes were unremarkable. BUN and creatinine were 6 and 0.7, with a GFR of more than 60. Repeat potassium and magnesium, showed a potassium of 3.9, and magnesium of 2.2. We did not repeat this today as she had just received supplement yesterday, and is now on increased daily oral supplement. We have a repeat magnesium and potassium ordered for the morning of the , as well as repeat hemoglobin and hematocrit. I met and talked with her , Yosef, at length. He really feels that because of her confusion and weakness, he cannot care for her at home properly. They have approached [facility] in [place], and [facility] is looking at admission next week. Mehnaz is aware of this and also accepts this. Her hope is to regain strength and come home, however, she does appear to have significant cognitive impairment and this may be the determining factor whether she gets back home or not. As mentioned above, they have decided to not pursue any further chemotherapy. They do have a PET scan coming up shortly and would like to pursue the PET scan even though we will not pursue chemotherapy just to know if there is any recurrent cancer. (This was later cancelled by Yosef Woodard and will not be rescheduled.) I discussed Mehnaz's code status both with her and with Yosef and they both state that she does not wish to be resuscitated. IMPRESSION AND PLAN: A 72-year-old lady with multiple medical problems as above. 1. Continue present management. 2. We are waiting the final ID and sensitivity of the 1 positive anaerobic blood culture. 3. Urinary tract infection. Culture showed E. coli which is sensitive to the ceftriaxone. 4. 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 5. Physical and cognitive decline secondary to her prolonged illness and treatment. The plan is to be admitted to [facility] in [place] next week for therapy and ongoing care. 6. I gave Mr. Herman the phone number at [facility] and the names of the two intake workers so that he can go and discuss Mehnaz's eligibility for medical assistance. 7. Persistent hypomagnesemia, hypokalemia. She is now on increased oral supplements and repeat magnesium and potassium are pending for tomorrow morning. 8. No other changes were made in her care today. [facility] /[id number] [place]
[2017-10-24] MEDS: Potassium Chloride 10 MEQ Tab.ER PO SCH ×3 (09:36→18:01)
[2017-10-24] MEDS: Enoxaparin 100 MG/1 ML Syringe SUBCUT SCH (09:38)
[2017-10-24] MEDS: Lidocaine 5% 700 MG Patch TOP SCH (09:44)
[2017-10-24] MEDS: cefTRIAXone 1 GM in Sodium Chloride 0.9% 50 ML IV SCH (15:27)
[2017-10-24] MEDS: Famotidine 20 MG Tab PO SCH (21:04)
[2017-10-25] MEDS: metroNIDAZOLE/Normal Saline 500 MG in Premix Bag 100 BAG IV SCH ×3 (05:57→22:08)
[2017-10-25] MEDS: Sodium Chloride 0.9% 10 ML Syringe FLUSH PRN ×5 (05:57→16:05)
--- NOTE | 2017-10-25 08:21 | PN ---
DATE: 10/24/2017 SUBJECTIVE: Mrs. Herman is a 72-year-old lady with multiple medical problems. She has history of vulvar cancer and has had an extended chemo and radiation therapy at [facility], following surgical removal of tumor and pelvic lymph node dissection. 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 She has developed some chronic nausea, making it difficult for her to take her medications and nutrition. She also has developed persistent hypokalemia and hypomagnesemia, requiring multiple IV treatments to replete the electrolytes. She has a T8 compression fracture which has caused her considerable pain and limits her mobility. She is currently being treated for a urinary tract infection. Urine culture was positive for E. coli. Review of her clinical data shows that she is taking in some oral fluids. Appetite remains poor. She is voiding and has multiple bowel movements per day. Vital signs remained stable, and she continues to be afebrile. LABORATORY DATA: A repeat lab work today included a hemoglobin and hematocrit which were stable at 10.7 and 33. Potassium this morning was normal at 4, and magnesium was 1.3. PHYSICAL EXAMINATION: General: She is lying supine in the bed. She appeared to be in no acute distress. She did have an emesis bag going across her stomach. She continues to have nausea. Last night, she was having difficulty with her pain medication, and we changed this to hydrocodone with premedication with ondansetron, and this seems to be helping somewhat. Vital Signs: Blood pressure was 117/80, pulse 85, respiratory rate 20, and oxygen saturation 93% on room air. She is afebrile. ENT: Unremarkable. Chest: Showed clear but diminished bilateral breath sounds. Heart: Showed regular rate and rhythm. Abdomen: Obese, soft, benign, and nontender. Extremities: Showed the calves to be soft and nontender. There is no appreciable muscle tone on palpation of the calves with significant muscle atrophy apparent. No palpable peripheral pulses. Neurological: There were no gross deficits. She continues to be confused. I have known Mrs. Herman for a number of years. Yesterday, we talked about people that she knew, and today, she asked me the same questions again with no memory of yesterday's discussion. MEDICATIONS: Her magnesium oxide was increased today to 500 mg three times a day. I also discussed her electrolyte imbalance with the incoming hospitalist who pointed out that pantoprazole can have an effect on magnesium. The Pantoprazole was discontinued, and she was started on Pepcid 20 mg twice a day. We will recheck magnesium tomorrow. She continues on Rocephin and metronidazole. DIAGNOSTIC DATA: One anaerobic blood culture shows a growth of coagulase negative Staph. The final ID and sensitivity should be out tomorrow. This may represent a contaminant. Her aerobic bottles show no growth after three days. ASSESSMENT AND PLAN: We have spoken with [facility] in [place] regarding admission. They have been in to see Mrs. Herman and evaluated her for admission. There will be a bed available on October 27, and we have planned for discharge and admission to [facility] at that time. There will be no availability of admission today on the day following . We discussed with her the possibility of looking into [place] [facility]. He did go to the [employer] today, however, offices were closed as today is apparently a state holiday as well. He was kept informed of the changes made in her care today. Changes as above today. We will continue the present management and are looking at admission to [facility] on Friday, October 27, 2017. [facility] /[id number] MTDAnton
[2017-10-25] MEDS: Ondansetron 4 MG Tab.DIS PO PRN ×3 (09:02→22:09)
[2017-10-25] MEDS: Potassium Chloride 10 MEQ Tab.ER PO SCH ×3 (10:15→17:47)
[2017-10-25] MEDS: Acetaminophen/HYDROcodone 325-5 MG Tab PO PRN ×2 (10:15→22:09)
[2017-10-25] MEDS: Famotidine 20 MG Tab PO SCH ×2 (10:16→22:07)
[2017-10-25] MEDS: Enoxaparin 100 MG/1 ML Syringe SUBCUT SCH (10:17)
[2017-10-25] MEDS: Lidocaine 5% 700 MG Patch TOP SCH (10:19)
--- NOTE | 2017-10-25 11:44 | PCM.PN ---
- General Info Date of Service: 10/25/17 Admission Dx/Problem (Free Text): Admission Diagnosis/Problem Admission Diagnosis/Problem Weakness and back pain, progressive deterioration of health Subjective Update: She is feeling well, continues to have back pain still.The pain is moderate, only present with activity. today she still have nausea and appetite is not that good Functional Status: Reports: Pain Controlled, Tolerating Diet, Ambulating (with assistance), Urinating - Review of Systems General: Reports: Weakness, Fatigue, Appetite (poor). Denies: Chills HEENT: Denies: Sinus Congestion, Sore Throat, Visual Changes Pulmonary: Denies: Shortness of Breath, Pleuritic Chest Pain, Cough, Sputum, Wheezing Cardiovascular: Denies: Chest Pain, Palpitations, Edema Gastrointestinal: Reports: Decreased Appetite, Nausea. Denies: Diarrhea, Vomiting Genitourinary: Denies: Dysuria, Burning, Urgency, Flank Pain Musculoskeletal: Reports: Neck Pain, Back Pain Skin: Denies: Cyanosis, Dryness, Bruising, Pruritis, Rash Neurological: Denies: Confusion, Tingling, Tremors, Trouble Speaking Psychiatric: Denies: Confusion, Agitation - Patient Data Vitals - Most Recent: Last Vital Signs Temp 36.7 C 10/25/17 07:52 Pulse 87 10/25/17 07:52 Resp 20 10/25/17 07:52 BP 113/77 10/25/17 07:52 Pulse Ox 98 10/25/17 07:52 Weight - Most Recent: 71.3 kg I&O - Last 24 Hours: Intake & Output 10/24/17 10/25/17 10/25/17 22:59 06:59 14:59 Intake Total 530 300 293 Output Total 50 Balance 480 300 293 Lab Results Last 24 Hours: Laboratory Results - last 24 hr 10/25/17 Range/Units 06:08 Magnesium 1.4 L (1.8-2.5) mg/dL Med Orders - Current: Current Medications Acetaminophen (Tylenol) 650 mg PO Q4H PRN PRN Reason: Pain (Mild 1-3)/fever Hydrocodone Bitart/Acetaminophen ([place] 325-5 Mg) 1 tab PO Q6H PRN PRN Reason: Pain Last Admin: 10/25/17 10:15 Dose: 1 tab Enoxaparin Sodium (Lovenox) 100 mg SUBCUT DAILY [facility] Last Admin: 10/25/17 10:17 Dose: 100 mg Famotidine (Pepcid) 20 mg PO BID [facility] Last Admin: 10/25/17 10:16 Dose: 20 mg Ceftriaxone Sodium 1 gm/ (Sodium Chloride) 50 mls @ 100 mls/hr IV Q24H [facility] Last Admin: 10/24/17 15:27 Dose: 100 mls/hr Metronidazole 500 mg/ Premix 100 mls @ 100 mls/hr IV Q8H [facility] Last Infusion: 10/25/17 10:33 Dose: Infused Lidocaine (Lidoderm 5%) 700 mg TOP DAILY [facility] Last Admin: 10/25/17 10:19 Dose: 700 mg Magnesium Oxide (Magnesium Oxide) 750 mg PO TID [facility] Last Admin: 10/25/17 10:27 Dose: 750 mg Miscellaneous Information (Remove Patch) 1 ea TRDERM BEDTIME [facility] Last Admin: 10/24/17 21:05 Dose: Not Given Ondansetron HCl (Zofran Odt) 4 mg PO Q4H PRN PRN Reason: nausea, able to take PO Last Admin: 10/25/17 09:02 Dose: 4 mg Ondansetron HCl (Zofran) 4 mg IVPUSH Q4H PRN PRN Reason: Nausea/Vomiting Potassium Chloride (Klor-Con 10) 20 meq PO TIDMEALS [facility] Last Admin: 10/25/17 10:15 Dose: 20 meq Sodium Chloride (Saline Flush) 10 ml FLUSH ASDIRECTED PRN PRN Reason: Keep Vein Open Last Admin: 10/25/17 10:23 Dose: 10 ml Zolpidem Tartrate (Ambien) 5 mg PO BEDTIME PRN PRN Reason: Sleep Discontinued Medications Sodium Chloride (Normal Saline) 1,000 mls @ 250 mls/hr IV .BOLUS ONE Stop: 10/21/17 17:18 Last Infusion: 10/21/17 17:38 Dose: Infused Magnesium Sulfate/Dextrose 1 (gm/ Premix) 100 mls @ 100 mls/hr IV Q1H [facility] Stop: 10/21/17 17:59 Last Admin: 10/21/17 23:31 Dose: 100 mls/hr Ceftriaxone Sodium 1 gm/ (Sodium Chloride) 50 mls @ 100 mls/hr IV Q24H [facility] Magnesium Sulfate/Dextrose 1 (gm/ Premix) 100 mls @ 100 mls/hr IV ONETIME ONE Stop: 10/25/17 10:05 Last Infusion: 10/25/17 11:25 Dose: Infused Magnesium Oxide (Magnesium Oxide) 250 mg PO TID [facility] Last Admin: 10/23/17 22:10 Dose: 250 mg Magnesium Oxide (Magnesium Oxide) 500 mg PO TID [facility] Last Admin: 10/25/17 11:31 Dose: Not Given Magnesium Oxide (Magnesium Oxide) 800 mg PO TID [facility] Non-Formulary Medication (Magnesium Oxide [Magnesium Oxide]) 400 mg PO TID [facility] Ondansetron HCl (Zofran Odt) 4 mg PO Q6H PRN PRN Reason: nausea, able to take PO Last Admin: 10/23/17 12:58 Dose: 4 mg Ondansetron HCl (Zofran) 4 mg IVPUSH Q6H PRN PRN Reason: Nausea/Vomiting Last Admin: 10/23/17 19:52 Dose: 4 mg Oxycodone/Acetaminophen (Percocet 325-5 Mg) 1 tab PO Q4H PRN PRN Reason: Pain Last Admin: 10/23/17 08:40 Dose: 1 tab Pantoprazole Sodium (Protonix) 40 mg PO BIDAC [facility] Last Admin: 10/24/17 17:00 Dose: 40 mg - Exam Quality Assessment: DVT Prophylaxis. No: Supplemental Oxygen, Urine Catheter General: Alert, Oriented, Cooperative, No Acute Distress HEENT: Pupils Equal, EOMI, Mucous Membr. Moist/[place] Neck: Supple, No JVD, No Thyromegaly Lungs: Clear to Auscultation, Normal Respiratory Effort. No: Crackles, Rales, Wheezing Cardiovascular: Regular Rate, Regular Rhythm, Murmurs GI/Abdominal Exam: Normal Bowel Sounds, Soft, No Distention (Female) Exam: Deferred Back Exam: Normal Inspection, Decreased Range of Motion, Vertebral Tenderness Extremities: Normal Inspection, Non-Tender, No Pedal Edema Skin: Warm, Dry, Intact Neurological: No New Focal Deficit, Normal Speech Psy/Mental Status: Alert, Normal Affect, Normal Mood - Problem List Review Problem List Initiated/Reviewed/Updated: Yes - My Orders Last 24 Hours: My Active Orders 10/25/17 10:00 Magnesium Oxide 750 mg PO TID 10/26/17 06:00 MAGNESIUM [CHEM] Routine POTASSIUM,K [CHEM] Routine - Plan Plan:: The patient is a 72-year-old lady with a history of vulvar cancer status post chemotherapy. The patient has been living with the . Practically every day has to go to the emergency room for IV magnesium or potassium supplement. She has been increasingly weak. She developed back pain due to T8 compression fractures. The pain is moderate to severe worse with activity better with rest, taking oxycodone in the evening. The patient came to the emergency room today with weakness, concern that is not able to take care of her anymore at home. #1 weakness This is likely multifactorial due to chronic medical issues including vulvar carcinoma status post chemotherapy, recurrent nausea, vomiting, diarrhea due to colitis. Chronic electrolyte abnormalities Continue physical and occupational therapy evaluate and treat the patient. -Will likely be able to discharge to long-term on Friday #2 Hypomagnesemia - She is on oral Magnesium oxide, will change dose from 500 mg TID to 750 mg TID -Will give Magnesium sulfate 1 gm IV X 1 dose now -Recheck potassium magnesium and potassium the morning #3 back pain due to T8 compression fracture -Continue Lidoderm patch and oxycodone as needed #4 acute urinary tract infection urine culture: Escherichia coli and suscptable to Ceftriaxione will continue #5 right lower extremity DVT - Status post implantation and then removal of inferior vena cava filter - continue Lovenox -use Jace stockings. #6 nausea, vomiting This has been chronic and Treat symptomatically, continue Zofran as needed Code status: DNR/DNI
[2017-10-25] MEDS: cefTRIAXone 1 GM in Sodium Chloride 0.9% 50 ML IV SCH (15:28)
[2017-10-26] MEDS: metroNIDAZOLE/Normal Saline 500 MG in Premix Bag 100 BAG IV SCH ×3 (06:16→22:08)
[2017-10-26] MEDS: Sodium Chloride 0.9% 10 ML Syringe FLUSH PRN ×6 (06:16→16:25)
[2017-10-26] MEDS: Potassium Chloride 10 MEQ Tab.ER PO SCH ×3 (08:21→17:46)
[2017-10-26] MEDS: Ondansetron 4 MG Tab.DIS PO PRN ×2 (09:37→16:29)
[2017-10-26] MEDS: Famotidine 20 MG Tab PO SCH ×2 (10:22→20:44)
[2017-10-26] MEDS: Enoxaparin 100 MG/1 ML Syringe SUBCUT SCH (10:23)
[2017-10-26] MEDS: Lidocaine 5% 700 MG Patch TOP SCH (10:24)
--- NOTE | 2017-10-26 10:58 | PCM.PN ---
- General Info Date of Service: 10/26/17 Admission Dx/Problem (Free Text): Admission Diagnosis/Problem Admission Diagnosis/Problem Weakness and back pain, progressive deterioration of health Subjective Update: She is not feeling well, continues to have back pain she still have nausea and appetite is not that good, food does not taste good Functional Status: Reports: Pain Controlled, Tolerating Diet (but has extremely poor appetite), Urinating - Review of Systems General: Reports: Weakness (extreme), Malaise, Appetite (poor). Denies: Fever, Chills HEENT: Denies: Ear Pain, Eye Pain, Post Nasal Drip, Sinus Congestion, Sore Throat, Visual Changes Pulmonary: Denies: Shortness of Breath, Cough, Wheezing Cardiovascular: Denies: Chest Pain, Palpitations, Lightheadedness Gastrointestinal: Reports: Diarrhea, Nausea. Denies: Abdominal Pain, Constipation, Vomiting Genitourinary: Denies: Dysuria, Burning, Urgency, Flank Pain Musculoskeletal: Reports: Shoulder Pain, Back Pain Neurological: Denies: Confusion, Tingling, Tremors, Trouble Speaking Psychiatric: Denies: Confusion, Anxiety - Patient Data Vitals - Most Recent: Last Vital Signs Temp 36.9 C 10/26/17 07:52 Pulse 89 10/26/17 07:52 Resp 20 10/26/17 07:52 BP 123/80 10/26/17 07:52 Pulse Ox 96 10/26/17 07:52 Weight - Most Recent: 71.3 kg I&O - Last 24 Hours: Intake & Output 10/25/17 10/26/17 10/26/17 22:59 06:59 14:59 Intake Total 648 193 97 Balance 648 193 97 Lab Results Last 24 Hours: Laboratory Results - last 24 hr 10/26/17 10/26/17 Range/Units 06:28 06:28 Hgb 10.7 L (12.0-16.0) g/dL Hct 33.0 L (37.0-47.0) % Potassium 4.0 (3.6-5.0) mmol/L Magnesium 1.5 L (1.8-2.5) mg/dL Med Orders - Current: Current Medications Acetaminophen (Tylenol) 650 mg PO Q4H PRN PRN Reason: Pain (Mild 1-3)/fever Hydrocodone Bitart/Acetaminophen ([place] 325-5 Mg) 1 tab PO Q6H PRN PRN Reason: Pain Last Admin: 10/25/17 22:09 Dose: 1 tab Enoxaparin Sodium (Lovenox) 100 mg SUBCUT DAILY [facility] Last Admin: 10/26/17 10:23 Dose: 100 mg Famotidine (Pepcid) 20 mg PO BID [facility] Last Admin: 10/26/17 10:22 Dose: 20 mg Ceftriaxone Sodium 1 gm/ (Sodium Chloride) 50 mls @ 100 mls/hr IV Q24H [facility] Last Admin: 10/25/17 15:28 Dose: 100 mls/hr Metronidazole 500 mg/ Premix 100 mls @ 100 mls/hr IV Q8H [facility] Last Infusion: 10/26/17 07:21 Dose: Infused Lidocaine (Lidoderm 5%) 700 mg TOP DAILY [facility] Last Admin: 10/26/17 10:24 Dose: 700 mg Magnesium Oxide (Magnesium Oxide) 1,000 mg PO TID [facility] Last Admin: 10/26/17 10:22 Dose: 1,000 mg Miscellaneous Information (Remove Patch) 1 ea TRDERM BEDTIME [facility] Last Admin: 10/25/17 22:07 Dose: Not Given Ondansetron HCl (Zofran Odt) 4 mg PO Q4H PRN PRN Reason: nausea, able to take PO Last Admin: 10/26/17 09:37 Dose: 4 mg Ondansetron HCl (Zofran) 4 mg IVPUSH Q4H PRN PRN Reason: Nausea/Vomiting Potassium Chloride (Klor-Con 10) 20 meq PO TIDMEALS [facility] Last Admin: 10/26/17 08:21 Dose: 20 meq Sodium Chloride (Saline Flush) 10 ml FLUSH ASDIRECTED PRN PRN Reason: Keep Vein Open Last Admin: 10/26/17 10:24 Dose: 10 ml Zolpidem Tartrate (Ambien) 5 mg PO BEDTIME PRN PRN Reason: Sleep Discontinued Medications Sodium Chloride (Normal Saline) 1,000 mls @ 250 mls/hr IV .BOLUS ONE Stop: 10/21/17 17:18 Last Infusion: 10/21/17 17:38 Dose: Infused Magnesium Sulfate/Dextrose 1 (gm/ Premix) 100 mls @ 100 mls/hr IV Q1H [facility] Stop: 10/21/17 17:59 Last Admin: 10/21/17 23:31 Dose: 100 mls/hr Ceftriaxone Sodium 1 gm/ (Sodium Chloride) 50 mls @ 100 mls/hr IV Q24H [facility] Magnesium Sulfate/Dextrose 1 (gm/ Premix) 100 mls @ 100 mls/hr IV ONETIME ONE Stop: 10/25/17 10:05 Last Infusion: 10/25/17 11:25 Dose: Infused Magnesium Sulfate/Dextrose 1 (gm/ Premix) 100 mls @ 100 mls/hr IV Q1H [facility] Stop: 10/26/17 10:50 Last Admin: 10/26/17 10:24 Dose: 100 mls/hr Magnesium Oxide (Magnesium Oxide) 250 mg PO TID [facility] Last Admin: 10/23/17 22:10 Dose: 250 mg Magnesium Oxide (Magnesium Oxide) 500 mg PO TID [facility] Last Admin: 10/25/17 11:31 Dose: Not Given Magnesium Oxide (Magnesium Oxide) 800 mg PO TID [facility] Magnesium Oxide (Magnesium Oxide) 750 mg PO TID [facility] Last Admin: 10/25/17 22:07 Dose: 750 mg Non-Formulary Medication (Magnesium Oxide [Magnesium Oxide]) 400 mg PO TID [facility] Ondansetron HCl (Zofran Odt) 4 mg PO Q6H PRN PRN Reason: nausea, able to take PO Last Admin: 10/23/17 12:58 Dose: 4 mg Ondansetron HCl (Zofran) 4 mg IVPUSH Q6H PRN PRN Reason: Nausea/Vomiting Last Admin: 10/23/17 19:52 Dose: 4 mg Oxycodone/Acetaminophen (Percocet 325-5 Mg) 1 tab PO Q4H PRN PRN Reason: Pain Last Admin: 10/23/17 08:40 Dose: 1 tab Pantoprazole Sodium (Protonix) 40 mg PO BIDAC [facility] Last Admin: 10/24/17 17:00 Dose: 40 mg - Exam Quality Assessment: DVT Prophylaxis. No: Supplemental Oxygen, Urine Catheter General: Alert, Oriented, Cooperative, No Acute Distress HEENT: Pupils Equal, EOMI, Mucous Membr. Moist/[place] Neck: Supple, No JVD, No Thyromegaly. No: Lymphadenopathy Lungs: Clear to Auscultation, Normal Respiratory Effort. No: Crackles, Wheezing Cardiovascular: Regular Rate, Regular Rhythm, Murmurs GI/Abdominal Exam: Normal Bowel Sounds, Soft, Non-Tender. No: Guarding, Rigid, Rebound (Female) Exam: Deferred Back Exam: Normal Inspection, Vertebral Tenderness Extremities: Normal Inspection, No Pedal Edema Skin: Warm, Dry, Intact Neurological: No New Focal Deficit Psy/Mental Status: Alert, Normal Affect, Normal Mood - Problem List Review Problem List Initiated/Reviewed/Updated: Yes - My Orders Last 24 Hours: My Active Orders 10/26/17 08:53 Magnesium Oxide 1,000 mg PO TID - Plan Plan:: The patient is a 72-year-old lady with a history of vulvar cancer status post chemotherapy. The patient has been living with the . Practically every day has to go to the emergency room for IV magnesium or potassium supplement. She has been increasingly weak. She developed back pain due to T8 compression fractures. The pain is moderate to severe worse with activity better with rest, taking oxycodone in the evening. The patient came to the emergency room with weakness, concern that is not able to take care of her anymore at home. #1 weakness This is likely multifactorial due to chronic medical issues including vulvar carcinoma, status post chemotherapy, recurrent nausea, vomiting, diarrhea due to colitis. Chronic electrolyte abnormalities Continue physical and occupational therapy evaluate and treat the patient. -Will likely be discharge to [facility] on Friday #2 Hypomagnesemia - She is on oral Magnesium oxide, will change dose from 750 mg TID to 100 mg TID -Will give Magnesium sulfate 2 gm IV X 1 dose now -Recheck potassium magnesium and potassium the morning #3 back pain due to T8 compression fracture -Continue Lidoderm patch and oxycodone as needed #4 acute urinary tract infection urine culture: Escherichia coli and suscptable to Ceftriaxione will continue ceftriaxone #5 right lower extremity DVT - Status post implantation and then removal of inferior vena cava filter - continue Lovenox -use Jace stockings. #6 nausea, vomiting This has been chronic and Treat symptomatically, continue Zofran as needed #7 Hypokalemia: This is also from poor oral intake and loss from Diarrhea she is on potassium chloride 20 meq TID with meals and will continue -Recheck potassium again AM - Code status: DNR/DNI
[2017-10-26] MEDS: cefTRIAXone 1 GM in Sodium Chloride 0.9% 50 ML IV SCH (15:52)
[2017-10-26] MEDS: Acetaminophen/HYDROcodone 325-5 MG Tab PO PRN (17:47)
[2017-10-27] MEDS: metroNIDAZOLE/Normal Saline 500 MG in Premix Bag 100 BAG IV SCH ×2 (05:49→14:23)
[2017-10-27 07:44] VITALS: BP 109/73
[2017-10-27] MEDS: Enoxaparin 100 MG/1 ML Syringe SUBCUT SCH (09:18)
[2017-10-27] MEDS: Lidocaine 5% 700 MG Patch TOP SCH (09:18)
[2017-10-27] MEDS: Famotidine 20 MG Tab PO SCH (09:19)
[2017-10-27] MEDS: Potassium Chloride 10 MEQ Tab.ER PO SCH ×2 (09:19→13:21)
[2017-10-27] MEDS: Sodium Chloride 0.9% 10 ML Syringe FLUSH PRN (14:06)
[2017-10-27] MEDS: cefTRIAXone 1 GM in Sodium Chloride 0.9% 50 ML IV SCH (14:23)
--- NOTE | 2017-10-31 04:38 | DISCH ---
DISCHARGE DIAGNOSES: 1. Weakness, progressive. 2. Hypomagnesemia and hypokalemia, improved and stable. 3. Urinary tract infection, Escherichia coli. 4. T8 compression fracture, with moderate to severe pain. 5. Right lower extremity deep venous thrombosis, August 2017, on enoxaparin. 6. Nausea, vomiting, and loose stools, chronic, most likely secondary to prolonged treatment for cancer. 7. 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 8. Hypoalbuminemia. BRIEF HISTORY OF PRESENT ILLNESS: Mehnaz Herman is a 72-year-old lady, who was brought from home for admission by her . She has had a prolonged illness and treatment for metastatic vulvar carcinoma. She has been weak and getting progressively so. There have been no falls or injuries. She has been struggling with ongoing electrolyte imbalances, and her brought her in for further evaluation. PERTINENT LABS AND X-RAYS: CBC on day of admission showed a white count of 5.4 and platelets of 148,000. White count was 3.6 before discharge and platelets were 140,000. Hemoglobin and hematocrit were stable at 10.7 and 33. On admission, potassium was 3.9 and at discharge 4.0, magnesium was 1.6. This was repleted and was 1.7 at discharge after other medication changes were made. Renal function is intact. BUN and creatinine were 6 and 0.7 with a GFR of more than 60. LFTs were essentially unremarkable. Albumin is 2.8. Urinalysis showed a cloudy yellow urine with semi packed white cells and many bacteria. MICROBIOLOGY: Urine culture was positive for E. coli. Two sets of blood cultures drawn at the time of admission. One set remained negative after 5 days, 1 bottle on the other set showed Staph epidermidis. Two sets of blood cultures repeated during the admission after she had been on antibiotics, and there was no growth in any of the bottles. Mehnaz was noted to have swelling on the left lower extremity, with a history of a DVT on the right. A Doppler ultrasound was obtained during the admission that showed no deep venous thrombosis in the left lower extremity. HOSPITAL COURSE: Mehnaz was admitted as an acute inpatient. Her usual medications were continued. She was placed on IV ceftriaxone for the urinary tract infection. During this admission, she did receive IV magnesium sulfate for the hypomagnesemia. She also was on oral magnesium oxide, and this dose was increased during the admission. 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 Enoxaparin was continued for VTE prophylaxis and for treatment of the previous DVT. Ondansetron was used for her persistent nausea and vomiting. We had several long talks with her . At this point, he feels he really cannot adequately care for her at home any longer and placement was sought. She was admitted to [facility] in [place] and it was later decided that she would be transferred to [facility]. PHYSICAL EXAMINATION: Vital Signs: On the day of discharge, vital signs were stable. She had some nausea, but no vomiting. Blood pressure is 116/69, pulse 87, respiratory rate 20, oxygen saturation 96% on room air, and she is afebrile. Weight 157 pounds 3 ounces. Height 5 feet 1 inch. General: On exam, she is lying comfortably in bed. I have known Mrs. Herman for several years and she recognized me as soon as I came in. She asked appropriate questions about other family members, but on some things, she was quite confused and forgetful. HEENT: Showed neck to be supple. 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 Chest: Clear but diminished bilateral breath sounds. Heart: Regular rate and rhythm. Abdomen: Soft and benign. No tenderness on palpation. Extremities: Increased size and diameter of the left lower extremity compared to the right. The calves were soft and nontender. There were palpable peripheral pulses. Neurologic: There were no gross motor or sensory deficits; however, she is confused at times. DISCHARGE PLAN: 1. She will be discharged to [facility] in [place]. 2. She will continue on daily magnesium oxide and potassium chloride. We reviewed her medications. She had been on pantoprazole, which can contribute to hypomagnesemia, and the pantoprazole has been stopped. 3. Right DVT. She will continue on enoxaparin for treatment, as well as prophylaxis. 4. She has completed antibiotics for the UTI. These will not be continued. 5. For the nausea and vomiting, we will continue with oral Zofran. 6. For the back pain secondary to the acute T8 compression fracture, we are going to add fentanyl patches 12 mcg 1 every 72 hours. She also is using a lidocaine patch in that area. We have ordered oral hydrocodone, and I have asked that she be premedicated with the Zofran prior to being given hydrocodone. 7. Her pantoprazole was stopped, and she was started on famotidine. Pantoprazole can contribute to hypomagnesemia. 8. She will continue on a regular diet. We asked for small portions as her appetite is quite poor. 9. Followup labs were ordered including potassium, magnesium, and a platelet count. 10.Booties were ordered to prevent deep tissue infection to the heels. 11.I spoke with her , Yosef, at length regarding her code status. We also gave him an advance directive packet that they can fill out and have signed. They made it very clear that they wished her to be do not intubate/do not resuscitate. They are realistic about her overall situation. Just recently, she was found to have metastatic disease to the lung, and overall prognosis is poor. They have declined to continue with any further chemotherapy because of the many difficulties she has had with the chemotherapy, as well as the fact that she continues to become weaker. She will be transferred for admission to [facility] in [place]. CONDITION AT THE TIME OF DISCHARGE: Stable. LONG-TERM PROGNOSIS: Poor. [facility] /[id number] MTDD
== END 2017-10-27 14:39 | DRG 641 ==
LOC: DL.ED 10:47 → DL.MS 13:56 → UNDOADMOB 13:56 → DL.MS 14:55 → OBSVTOIN 15:26
PROVIDERS: ADMIT Internal Medicine; ATTEND Internal Medicine
DX: E83.42 Hypomagnesemia (principal); N39.0 Urinary tract infection, site not specified; I82.4Z1 Acute embolism and thrombosis of unspecified deep veins of right distal lower extremity; R53.1 Weakness; S22.060S Wedge compression fracture of T7-T8 vertebra, sequela; R11.2 Nausea with vomiting, unspecified; R19.7 Diarrhea, unspecified; E78.5 Hyperlipidemia, unspecified; Z85.44 Personal history of malignant neoplasm of other female genital organs; E87.6 Hypokalemia
CPT/HCPCS: 36415; 80053; 81001; 83605; 83735; 85025; 87040 ×2; 87077; 87086; 87088; 87186 ×2; 99285; A9270; J7030; 80048; 84100; 84132; 85014; 85018; 93971; 99284; J0696; J1642; J1650; J2405; J3475; J7050